=== PATIENT | female | born 1950 | race Caucasian/White ===

== ENCOUNTER 2017-01-14 11:49 | Inpatient (IN) | payer MEDICARE ==
[2017-01-14 11:49] VITALS: BMI 36.7
[2017-01-14] MEDS ORDERED: Sodium Chloride 0.9% 1,000 ML IV STA (12:56)
--- NOTE | 2017-01-14 13:20 | ED PDOC ---
Syncope/Near Syncope/Dizziness Time Seen by Provider: 01/14/17 13:00 Chief Complaint (Nursing): Dizziness/Lightheaded Chief Complaint (Provider): dizzy History Per: Patient (66 y/o female h/o DM/HTN here with complaint of ongoing dizziness/room spinning x months worsening last saturday when she had near fall. Notes additional right side headache. Denies any vomiting Denies any upper or lower extremity weakness.) Past Medical History Reviewed: Historical Data, Nursing Documentation, Vital Signs Vital Signs: Last Vital Signs Temp 98 F 01/14/17 11:53 Pulse 80 01/14/17 11:53 Resp 19 01/14/17 11:53 BP 126/50 L 01/14/17 11:53 Pulse Ox 98 01/14/17 11:53 - Medical History PMH: Anxiety, Arthritis (osteoarthritis), Back Problems, Bronchitis, COPD, Depression, Diabetes (type II), Hypercholesterolemia, Hypothyroidism Denies: HIV, Chronic Kidney Disease - Surgical History Surgical History: Back Surgery - Family History Family History: States: Unknown Family Hx - Home Medications Home Medications: Ambulatory Orders Medication Instructions Recorded DULoxetine [Cymbalta] 60 mg PO DAILY 03/20/16 Insulin Glargine, Recombina 45 unit SC HS 03/20/16 [Lantus] Levothyroxine [Synthroid] 125 mcg PO DAILY 03/20/16 Lisinopril [Zestril] 20 mg PO DAILY 03/20/16 SITagliptin [Januvia] 100 mg PO DAILY 03/20/16 clonazePAM [Klonopin] 0.5 mg PO BID PRN 03/20/16 metFORMIN [glucOPHAGE] 500 mg PO BID 03/20/16 Aspirin [Ecotrin] 81 mg PO DAILY 01/14/17 Atorvastatin [Lipitor] 80 mg PO HS 01/14/17 Budesonide/Formoterol Fumarate 2 puff IH Q12 01/14/17 [Symbicort 80-4.5 Mcg Inhaler] Clopidogrel [Plavix] 75 mg PO DAILY 01/14/17 Doxepin [Sinequan] 10 mg PO HS 01/14/17 GlipiZIDE [Glucotrol] 10 mg PO BID 01/14/17 Meclizine [Meclizine*] 25 mg PO TID PRN 01/14/17 Melatonin [Melatonin] 10 mg PO HS 01/14/17 - Allergies Allergies/Adverse Reactions: Allergies Allergy/AdvReac Type Severity Reaction Status Date / Time shellfish derived Allergy RASH Verified 04/04/16 18:30 Review of Systems ROS Statement: Except As Marked, All Systems Reviewed And Found Negative Physical Exam - Reviewed Nursing Documentation Reviewed: Yes Vital Signs Reviewed: Yes - Physical Exam Appears: Positive for: Well, Non-toxic, No Acute Distress Head Exam: Positive for: ATRAUMATIC, NORMAL INSPECTION, NORMOCEPHALIC Skin: Positive for: Normal Color, Warm, DRY Eye Exam: Positive for: EOMI, Normal appearance, PERRL ENT: Positive for: Normal ENT Inspection Neck: Positive for: Normal, Painless ROM Cardiovascular/Chest: Positive for: Regular Rate, Rhythm Respiratory: Positive for: CNT, Normal Breath Sounds Gastrointestinal/Abdominal: Positive for: Normal Exam, Bowel Sounds, Soft Back: Positive for: Normal Inspection Extremity: Positive for: Normal ROM Neurologic/Psych: Positive for: Alert, Oriented - Laboratory Results Result Diagrams: 01/14/17 13:15 01/14/17 13:15 - ECG O2 Sat by Pulse Oximetry: 98 - Progress ED Course And Treament: GUIAC STOOL SENT TO LAB; STOOL NOTED BROWN EKG NSR 74BPM; NO ECTOPY NO ACUTE CHANGES NS 1 LITER WIDE OPEN REGLAN 10 MG IV; ANTIVERT 25 MG FOR VERTIGO HEAD CT: WNL HGB 5.0 DR[address] FISHER AWARE. [address] FISHER HAS D/W DR. QUINONEZ Disposition - Clinical Impression Clinical Impression: Anemia - Patient ED Disposition Is Patient to be Admitted: Yes - Disposition Disposition Time: 14:12 Condition: FAIR
[2017-01-14 13:40] LABS: BASO # 0.2 K/uL (0.0-0.2); BASO % 1.1 % (0.0-2.0); EOS # 0.3 K/uL (0.0-0.7); EOS % 2.1 % (0.0-4.0); HEMATOCRIT 17.2 % (34.0-47.0); LYMPH # 2.6 K/uL (1.0-4.3); LYMPH % 19.9 % (20.0-40.0); MEAN CELL VOLUME 58.9 fl (81.0-99.0); MEAN CORPUSCULAR HEMOGLOBIN 17.2 pg (27.0-31.0); MEAN CORPUSCULAR HGB CONC 29.3 g/dL (33.0-37.0); MEAN PLATELET VOLUME 8.6 fl (7.2-11.7); MONO # 1.1 K/uL (0.0-0.8); NEUT # 9.1 K/uL (1.8-7.0); NEUT % 68.9 % (50.0-75.0); NRBC % 0.1 % (0.0-0.0); RED CELL DISTRIBUTION WIDTH 20.8 % (11.5-14.5); WHITE BLOOD COUNT 13.1 K/uL (4.8-10.8)
[2017-01-14 13:45] LABS: VENOUS BLOOD GAS BASE EXCESS -0.3 mmol/L (0.0-2.0); VENOUS BLOOD GAS PCO2 38 mmHg (40-60); VENOUS BLOOD PH 7.41 (7.32-7.43)
[2017-01-14 13:45] LABS: RBC URINE 2 /hpf (0-3); URINE BILIRUBIN NEGATIVE (NEGATIVE); URINE BLOOD NEGATIVE (NEGATIVE); URINE COLOR STRAW (YELLOW); URINE GLUCOSE (UA) >=500 mg/dL (Normal); URINE KETONE NEGATIVE (NEGATIVE); URINE LEUKOCYTE ESTERASE NEG Leu/uL (Negative); URINE PROTEIN NEGATIVE (NEGATIVE); URINE UROBILINOGEN 0.2-1.0 mg/dL (0.2-1.0); WBC URINE 1 /hpf (0-5)
[2017-01-14 13:51] LABS: ALB/GLOB RATIO 1.3 (1.0-2.1); ALKALINE PHOSPHATASE 119 U/L (38-126); ALT/SGPT 28 U/L (9-52); AST/SGOT 34 U/L (14-36); BILIRUBIN,TOTAL 0.3 mg/dl (0.2-1.3); BLOOD UREA NITROGEN 13 mg/dl (7-17); CALCIUM 9.1 mg/dL (8.4-10.2); CARBON DIOXIDE 22 mmol/L (22-30); CHLORIDE 94 mmol/L (98-107); GFR AFRICAN-AMERICAN > 60; GLUCOSE,RANDOM 320 mg/dL (65-105); POTASSIUM 4.1 MMOL/L (3.6-5.0); SODIUM 126 mmol/l (132-148); TOTAL PROTEIN 6.7 G/DL (6.3-8.2)
--- NOTE | 2017-01-14 14:35 | CT ---
PROCEDURE: CT HEAD WITHOUT CONTRAST. HISTORY: dizzy COMPARISON: None available. TECHNIQUE: Axial computed tomography images were obtained through the head/brain without intravenous contrast. Radiation dose: Total exam DLP = 880.24 mGy-cm. This CT exam was performed using one or more of the following dose reduction techniques: Automated exposure control, adjustment of the mA and/or kV according to patient size, and/or use of iterative reconstruction technique. FINDINGS: HEMORRHAGE: No acute parenchymal, subarachnoid nor extra-axial spell hemorrhage. BRAIN: Mild chronic periventricular white matter ischemic changes seen extending peripherally into the deep white matter both cerebral hemispheres. Changes are most conspicuous in the perifrontal horn white matter left greater than right. Additionally, there may also be a few scattered deep and subcortical white matter ischemic changes. Mild age-appropriate volume loss. Partially empty sella. Mild vascular calcifications are present. VENTRICLES: No obstructive hydrocephalus. CALVARIUM: . There are no acute calvarial fractures. PARANASAL SINUSES: Mild mucosal thickening seen within the ethmoid air complex MASTOID AIR CELLS: Unremarkable as visualized. No inflammatory changes. OTHER FINDINGS: None. IMPRESSION: No acute intracranial hemorrhage. Mild chronic periventricular white matter ischemic changes seen extending peripherally into the deep white matter both cerebral hemispheres. Changes are most conspicuous in the perifrontal horn white matter left greater than right. Additionally, there may also be a few scattered deep and subcortical white matter ischemic changes. Mild age-appropriate volume loss. Partially empty sella.
[2017-01-14] MEDS ORDERED: Insulin Regular 100 units/ml ONE (15:05)
[2017-01-14 15:11] LABS: PARTIAL THROMBOPLASTIN TIME 25.7 Seconds (25.6-37.1)
[2017-01-14] MEDS ORDERED: Albuterol-Ipratrop 3 mg / 0.5 (3 ml) UD INH PRN (15:54)
[2017-01-14] MEDS ORDERED: Insulin Regular 100 units/ml SC STA (15:56)
[2017-01-14 16:17] LABS: BASO # 0.1 K/uL (0.0-0.2); EOS # 0.3 K/uL (0.0-0.7); EOS % 2.7 % (0.0-4.0); HEMATOCRIT 16.4 % (34.0-47.0); LYMPH # 2.6 K/uL (1.0-4.3); LYMPH % 23.8 % (20.0-40.0); MEAN CELL VOLUME 59.8 fl (81.0-99.0); MEAN CORPUSCULAR HEMOGLOBIN 16.7 pg (27.0-31.0); MEAN CORPUSCULAR HGB CONC 27.9 g/dL (33.0-37.0); MEAN PLATELET VOLUME 8.6 fl (7.2-11.7); MONO % 8.6 % (0.0-10.0); NEUT % 63.9 % (50.0-75.0); NRBC % 0.3 % (0.0-0.0); RED CELL DISTRIBUTION WIDTH 20.5 % (11.5-14.5)
[2017-01-14 16:25] LABS: BLOOD UREA NITROGEN 11 mg/dl (7-17); CALCIUM 8.9 mg/dL (8.4-10.2); CARBON DIOXIDE 22 mmol/L (22-30); CHLORIDE 100 mmol/L (98-107); GFR AFRICAN-AMERICAN > 60; GLUCOSE,RANDOM 254 mg/dL (65-105); POTASSIUM 3.8 MMOL/L (3.6-5.0); SODIUM 131 mmol/l (132-148)
[2017-01-14] MEDS ORDERED: Insulin Lispro (humaLOG) 100 Units/ml Inj SC SCH (16:30)
--- NOTE | 2017-01-14 16:56 | RAD ---
HISTORY: Dizziness. COMPARISON: 04/04/2016 FINDINGS: LUNGS: No active pulmonary disease. PLEURA: No significant pleural effusion identified, no pneumothorax apparent. CARDIOVASCULAR: No radiographic findings to suggest acute or significant cardiovascular disease. OSSEOUS STRUCTURES: No significant abnormalities. VISUALIZED UPPER ABDOMEN: Normal. OTHER FINDINGS: None. IMPRESSION: No active disease. No significant interval change compared to the prior examination(s).
[2017-01-14] MEDS: Insulin Regular 100 units/ml SC SCH ×2 (17:59→23:00)
[2017-01-14] MEDS ORDERED: Dextrose 5%/0.9% NS 1,000 ML IV SCH (19:30)
[2017-01-14] MEDS ORDERED: Influenza Vaccine 18yr & older 0.5 ML/45 MCG SYR IM ONE (21:00)
[2017-01-14 22:06] LABS: FOLATE 19.8 ng/mL
--- NOTE | 2017-01-14 22:20 | CP.PCM.HP ---
History of Present Illness - History of Present Illness History of Present Illness: CC:Weakness and Fall History of Present Illness: A 66yoF with H/o DM II with Complications, Essential HTN, PVD, COPD, Chronic smoker, Dyslpidemia, Anxiety DO and Depression presented with weakness, and Falling with Passing out at least once. Denies Chest Pain, sob, or dizziness. In the ER, she was found to have Hgb 5.0->4.9 mg/dl. Denies Abdominal Pain, change in stool color, Hematemesis or hemachesia. Denies fever or chills. Present on Admission - Present on Admission Any Indicators Present on Admission: Yes History of DVT/PE: No History of Uncontrolled Diabetes: Yes Urinary Catheter: No Decubitus Ulcer Present: No Review of Systems - Review of Systems All systems: reviewed and no additional remarkable complaints except - Constitutional Constitutional: Fatigue, Frequent Falls, Weakness. absent: Fever Past Patient History - Infectious Disease Hx of Infectious Diseases: None - Past Medical History & Family History Past Medical History?: Yes Past Family History: Reviewed and not pertinent - Past Social History Smoking Status: Light Smoker < 10 Cigarettes Daily Alcohol: None Drugs: Denies Home Situation {Lives}: Other - CARDIAC Hx Cardiac Disorders: Yes Hx Circulatory Problems: Yes Hx Hypercholesterolemia: Yes Hx Hypertension: Yes - PULMONARY Hx Respiratory Disorders: Yes Hx Bronchitis: Yes Hx Chronic Obstructive Pulmonary Disease (COPD): Yes - NEUROLOGICAL Hx Neurological Disorder: No - HEENT Hx HEENT Problems: No - RENAL Hx Chronic Kidney Disease: No - ENDOCRINE/METABOLIC Hx Endocrine Disorders: Yes Hx Diabetes Mellitus Type 2: Yes Hx Hypothyroidism: Yes - HEMATOLOGICAL/ONCOLOGICAL Hx Blood Transfusions: No Hx Human Immunodeficiency Virus (HIV): No - INTEGUMENTARY Hx Dermatological Problems: No - MUSCULOSKELETAL/RHEUMATOLOGICAL Hx Musculoskeletal Disorders: Yes Hx Arthritis: Yes (osteoarthritis) Hx Back Pain: Yes Hx Falls: Yes - GASTROINTESTINAL Hx Gastrointestinal Disorders: No Hx Constipation: Yes - GENITOURINARY/GYNECOLOGICAL Hx Genitourinary Disorders: No - PSYCHIATRIC Hx Psychophysiologic Disorder: Yes Hx Anxiety: Yes Hx Depression: Yes - SURGICAL HISTORY Hx Surgeries: Yes Other/Comment: back surgery, as per pt has 2 epidurals in her back. left knee surgery x2 - ANESTHESIA Hx Anesthesia: Yes Hx Anesthesia Reactions: No Hx Malignant Hyperthermia: No Meds Allergies/Adverse Reactions: Allergies Allergy/AdvReac Type Severity Reaction Status Date / Time shellfish derived Allergy RASH Verified 04/04/16 18:30 Physical Exam - Constitutional Appears: Well, No Acute Distress - Head Exam Head Exam: ATRAUMATIC, NORMAL INSPECTION, NORMOCEPHALIC - Eye Exam Eye Exam: EOMI, Normal appearance, PERRL Pupil Exam: NORMAL ACCOMODATION, PERRL - ENT Exam ENT Exam: Mucous Membranes Moist, Normal Exam - Neck Exam Neck exam: Positive for: Normal Inspection - Respiratory Exam Respiratory Exam: Clear to Auscultation Bilateral, NORMAL BREATHING PATTERN - Cardiovascular Exam Cardiovascular Exam: REGULAR RHYTHM, +S1, +S2 - GI/Abdominal Exam GI & Abdominal Exam: Normal Bowel Sounds, Soft. absent: Tenderness - Rectal Exam Rectal Exam: absent: Bloody Stool, Fecal Impaction - Extremities Exam Extremities exam: Positive for: normal inspection - Back Exam Back exam: NORMAL INSPECTION - Neurological Exam Neurological exam: Alert, CN II-XII Intact, Normal Gait, Oriented x3, Reflexes Normal - Psychiatric Exam Psychiatric exam: Normal Affect, Normal Mood - Skin Skin Exam: Dry, Intact, Normal Color, Warm Results - Vital Signs Recent Vital Signs: Last Vital Signs Temp 98.5 F 01/14/17 18:59 Pulse 67 01/14/17 18:59 Resp 20 01/14/17 18:59 BP 98/49 L 01/14/17 18:59 Pulse Ox 95 01/14/17 18:59 - Labs Result Diagrams: 01/16/17 05:40 01/16/17 05:35 Labs: Laboratory Results - last 24 hr 01/14/17 01/14/17 01/14/17 14:15 14:25 16:00 WBC RBC Hgb Hct MCV MCH MCHC RDW Plt Count MPV Neut % (Auto) Lymph % (Auto) [place] % (Auto) Eos % (Auto) Baso % (Auto) Neut # Lymph # [place] # Eos # Baso # Retic Count PT 11.9 INR 1.2 APTT 25.7 Sodium 131 L Potassium 3.8 Chloride 100 Carbon Dioxide 22 Anion Gap 13 BUN 11 Creatinine 0.6 L Est GFR ( Amer) > 60 Est GFR (Non-Af Amer) > 60 POC Glucose (mg/dL) Random Glucose 254 H Serum Osmolality Calcium 8.9 Ferritin 2.8 Vitamin B12 275 Folate 19.8 Urine Osmolality Stool Occult Blood Blood Type O POSITIVE Antibody Screen Negative Crossmatch See Detail BBK History Checked No verified bt 01/14/17 01/14/17 01/14/17 16:00 16:00 16:00 WBC 11.0 H RBC 2.75 L Hgb 4.6 L* Hct 16.4 L MCV 59.8 L MCH 16.7 L MCHC 27.9 L RDW 20.5 H Plt Count 356 MPV 8.6 Neut % (Auto) 63.9 Lymph % (Auto) 23.8 [place] % (Auto) 8.6 Eos % (Auto) 2.7 Baso % (Auto) 1.0 Neut # 7.0 Lymph # 2.6 [place] # 1.0 H Eos # 0.3 Baso # 0.1 Retic Count 3.3 H PT INR APTT Sodium Potassium Chloride Carbon Dioxide Anion Gap BUN Creatinine Est GFR ( Amer) Est GFR (Non-Af Amer) POC Glucose (mg/dL) Random Glucose Serum Osmolality Calcium Ferritin Vitamin B12 Folate Urine Osmolality Stool Occult Blood Negative Blood Type Antibody Screen Crossmatch BBK History Checked 01/14/17 01/14/17 01/14/17 17:33 18:45 19:45 WBC RBC Hgb Hct MCV MCH MCHC RDW Plt Count MPV Neut % (Auto) Lymph % (Auto) [place] % (Auto) Eos % (Auto) Baso % (Auto) Neut # Lymph # [place] # Eos # Baso # Retic Count PT INR APTT Sodium Potassium Chloride Carbon Dioxide Anion Gap BUN Creatinine Est GFR ( Amer) Est GFR (Non-Af Amer) POC Glucose (mg/dL) 150 H Random Glucose Serum Osmolality 281 Calcium Ferritin Vitamin B12 Folate Urine Osmolality 256 L Stool Occult Blood Blood Type Antibody Screen Crossmatch BBK History Checked 01/14/17 21:29 WBC RBC Hgb Hct MCV MCH MCHC RDW Plt Count MPV Neut % (Auto) Lymph % (Auto) [place] % (Auto) Eos % (Auto) Baso % (Auto) Neut # Lymph # [place] # Eos # Baso # Retic Count PT INR APTT Sodium Potassium Chloride Carbon Dioxide Anion Gap BUN Creatinine Est GFR ( Amer) Est GFR (Non-Af Amer) POC Glucose (mg/dL) 68 Random Glucose Serum Osmolality Calcium Ferritin Vitamin B12 Folate Urine Osmolality Stool Occult Blood Blood Type Antibody Screen Crossmatch BBK History Checked - Imaging and Cardiology CT scan - head Status: Report reviewed by me Additional comment: IMPRESSION: No acute intracranial hemorrhage. Mild chronic periventricular white matter ischemic changes seen extending peripherally into the deep white matter both cerebral hemispheres. Changes are most conspicuous in the perifrontal horn white matter left greater than right. Additionally, there may also be a few scattered deep and subcortical white matter ischemic changes. Mild age-appropriate volume loss. Partially empty sella. Chest x-ray Status: Report reviewed by me Additional comment: IMPRESSION: No active disease. No significant interval change compared to the prior examination(s). Assessment & Plan (1) Symptomatic anemia Status: Acute (2) COPD (chronic obstructive pulmonary disease) Status: Acute (3) PVD (peripheral vascular disease) Status: Acute (4) Diabetes mellitus Status: Acute (5) Essential hypertension Status: Acute
[2017-01-14] MEDS: Insulin Detemir 100 Units/ml Inj SC SCH (23:00)
[2017-01-15] MEDS: Insulin Regular 100 units/ml SC SCH ×4 (06:55→22:13)
--- NOTE | 2017-01-15 07:32 | CARD ---
APPROVED REPORT EKG Measurement Heart [id number] <Conclusion> Normal sinus rhythm Nonspecific intraventricular conduction delay Borderline ECG
[2017-01-15] MEDS: Levothyroxine 125 MCG TAB PO SCH (09:22)
[2017-01-15 09:55] LABS: HEMATOCRIT 23.5 % (34.0-47.0); MEAN CELL VOLUME 65.4 fl (81.0-99.0); MEAN CORPUSCULAR HEMOGLOBIN 20.3 pg (27.0-31.0); RED CELL DISTRIBUTION WIDTH 27.3 % (11.5-14.5); WHITE BLOOD COUNT 9.9 K/uL (4.8-10.8)
--- NOTE | 2017-01-15 10:49 | CP.PCM.CON ---
<Vincent Peña - Last Filed: 01/15/17 18:06> History of Present Illness - History of Present Illness History of Present Illness: PGY4 Initial GI Consult Note Dory Beebe is a 66F w/ hx of DM and HTn who presents to the ER with complaints of dizziness and near syncopal episode. Pt was found to have a hgb of 5 in the ER and was given 2 units of PRBCs. She states that she has a hx of anemia and her baseline is 8. Pt states that she has never had a work up for anemia including a colonoscopy or endoscopy. Pt states that she has been progressively weaker for the past 3-4 months. She is limited in mobility due to her COPD and OA, but she has nor been able to do any activities involving exertion. She notes that for the last few days she has been experiencing episodes of dizziness and eventally near syncope. Pt denies any recent weight loss. She denies any melena, hematemesis, BRBPR, or coffee-ground emesis. Pt states that she seldom takes NSAIDS and denies any sig Etoh use. She also denies any nausea, vomiting or diarrhea. She denies any rashes or glutin intolerance. PMHx: DM, HTN , COPD ,DEPRESSION PSHx: Cholecysetomy Social Hx: Occasional Etoh Use, Smokes about 1PPD for 20+ years, denies any illicit drug use Family Hx: Denies any hx of colon Ca ROS: 12-point ROS conducted, neg other than above Past Patient History - Infectious Disease Hx of Infectious Diseases: None - Past Medical History & Family History Past Medical History?: Yes - Past Social History Smoking Status: Light Smoker < 10 Cigarettes Daily - CARDIAC Hx Cardiac Disorders: Yes Hx Circulatory Problems: Yes Hx Hypercholesterolemia: Yes Hx Hypertension: Yes - PULMONARY Hx Respiratory Disorders: Yes Hx Bronchitis: Yes Hx Chronic Obstructive Pulmonary Disease (COPD): Yes - NEUROLOGICAL Hx Neurological Disorder: No - HEENT Hx HEENT Problems: No - RENAL Hx Chronic Kidney Disease: No - ENDOCRINE/METABOLIC Hx Endocrine Disorders: Yes Hx Diabetes Mellitus Type 2: Yes Hx Hypothyroidism: Yes - HEMATOLOGICAL/ONCOLOGICAL Hx Blood Transfusions: No Hx Human Immunodeficiency Virus (HIV): No - INTEGUMENTARY Hx Dermatological Problems: No - MUSCULOSKELETAL/RHEUMATOLOGICAL Hx Musculoskeletal Disorders: Yes Hx Arthritis: Yes (osteoarthritis) Hx Back Pain: Yes Hx Falls: Yes - GASTROINTESTINAL Hx Gastrointestinal Disorders: No Hx Constipation: Yes - GENITOURINARY/GYNECOLOGICAL Hx Genitourinary Disorders: No - PSYCHIATRIC Hx Psychophysiologic Disorder: Yes Hx Anxiety: Yes Hx Depression: Yes - SURGICAL HISTORY Hx Surgeries: Yes Other/Comment: back surgery, as per pt has 2 epidurals in her back. left knee surgery x2 - ANESTHESIA Hx Anesthesia: Yes Hx Anesthesia Reactions: No Hx Malignant Hyperthermia: No Meds Allergies/Adverse Reactions: Allergies Allergy/AdvReac Type Severity Reaction Status Date / Time shellfish derived Allergy RASH Verified 04/04/16 18:30 - Medications Medications: Current Medications Albuterol/Ipratropium (Duoneb 3 Mg/0.5 Mg (3 Ml) Ud) 3 ml INH RQ4 PRN PRN Reason: Shortness of Breath Atorvastatin Calcium (Lipitor) 80 mg PO HS [facility] Last Admin: 01/14/17 23:00 Dose: 80 mg Clonazepam (Klonopin) 0.5 mg PO BID PRN PRN Reason: Anxiety Doxepin HCl (Sinequan) 10 mg PO HS [facility] Last Admin: 01/14/17 23:00 Dose: 10 mg Duloxetine HCl (Cymbalta) 60 mg PO DAILY [facility] Last Admin: 01/15/17 09:21 Dose: 60 mg Dextrose/Sodium Chloride (Dextrose 5%/0.9% Ns 1000 Ml) 1,000 mls @ 40 mls/hr IV .Q24H [facility] Stop: 01/15/17 19:24 Last Admin: 01/15/17 03:58 Dose: 40 mls/hr Insulin Detemir (Levemir) 45 units SC HS [facility] Last Admin: 01/14/17 23:00 Dose: Not Given Insulin Human Regular (Humulin R) 0 units SC [facility] PRN Reason: Protocol Last Admin: 01/15/17 06:55 Dose: Not Given Levothyroxine Sodium (Synthroid) 125 mcg PO ACB [facility] Last Admin: 01/15/17 09:22 Dose: 125 mcg Lisinopril (Zestril) 20 mg PO DAILY [facility] Last Admin: 01/15/17 09:23 Dose: 20 mg Metformin HCl (Glucophage) 500 mg PO BID [facility] Last Admin: 01/15/17 09:33 Dose: Not Given Nicotine (Nicoderm Cq) 1 patch TD DAILY [facility] Last Admin: 01/15/17 09:21 Dose: 1 patch Pantoprazole Sodium (Protonix Inj) 40 mg IVP Q12 [facility] Last Admin: 01/15/17 09:22 Dose: 40 mg Sitagliptin Phosphate (Januvia) 100 mg PO DAILY [facility] Last Admin: 01/15/17 10:36 Dose: 100 mg Physical Exam - Constitutional Appears: Well, Non-toxic, No Acute Distress - Head Exam Head Exam: ATRAUMATIC, NORMOCEPHALIC - Eye Exam Eye Exam: Normal appearance - ENT Exam ENT Exam: Mucous Membranes Moist, Normal Exam - Respiratory Exam Respiratory Exam: Wheezes, NORMAL BREATHING PATTERN. absent: Rales, Rhonchi, Respiratory Distress - Cardiovascular Exam Cardiovascular Exam: REGULAR RHYTHM, RRR, +S1, +S2 - GI/Abdominal Exam GI & Abdominal Exam: Normal Bowel Sounds, Soft. absent: Distended, Firm, Guarding, Organomegaly, Rigid - Extremities Exam Extremities exam: Negative for: joint swelling, pedal edema, tenderness - Neurological Exam Neurological exam: Alert, Oriented x3 - Psychiatric Exam Psychiatric exam: Normal Affect, Normal Mood - Skin Skin Exam: Dry, Intact, Normal Color, Warm Results - Vital Signs Recent Vital Signs: Last Vital Signs Temp 98.4 F 01/15/17 08:29 Pulse 62 01/15/17 09:23 Resp 20 01/15/17 08:29 BP 118/62 01/15/17 09:23 Pulse Ox 94 L 01/15/17 08:29 - Labs Result Diagrams: 01/15/17 09:10 01/14/17 16:00 Labs: Laboratory Results - last 24 hr 01/14/17 01/14/17 01/14/17 12:55 13:15 13:15 WBC 13.1 H RBC 2.92 L Hgb 5.0 L* D Hct 17.2 L MCV 58.9 L D MCH 17.2 L MCHC 29.3 L RDW 20.8 H Plt Count 400 MPV 8.6 Neut % (Auto) 68.9 Lymph % (Auto) 19.9 L Glascock % (Auto) 8.0 Eos % (Auto) 2.1 Baso % (Auto) 1.1 Neut # 9.1 H Lymph # 2.6 Glascock # 1.1 H Eos # 0.3 Baso # 0.2 Retic Count PT INR APTT pO2 VBG pH VBG pCO2 VBG HCO3 VBG O2 Sat (Calc) VBG Base Excess Sodium 126 L Potassium 4.1 Chloride 94 L Carbon Dioxide 22 Anion Gap 14 BUN 13 Creatinine 0.6 L Est GFR ( Amer) > 60 Est GFR (Non-Af Amer) > 60 POC Glucose (mg/dL) 369 H Random Glucose 320 H Serum Osmolality Calcium 9.1 Ferritin Total Bilirubin 0.3 AST 34 ALT 28 Alkaline Phosphatase 119 Troponin I < 0.0120 Total Protein 6.7 Albumin 3.8 Globulin 2.9 Albumin/Globulin Ratio 1.3 Vitamin B12 Folate Urine Color Urine Clarity Urine pH Ur Specific Mathis Urine Protein Urine Glucose (UA) Urine Ketones Urine Blood Urine Nitrate Urine Bilirubin Urine Urobilinogen Ur Leukocyte Esterase Urine RBC (Auto) Urine Microscopic WBC Ur Squamous Epith Cells Urine Osmolality Stool Occult Blood Blood Type Blood Type Confirm Antibody Screen Crossmatch BBK History Checked 01/14/17 01/14/17 01/14/17 13:15 13:40 14:15 WBC RBC Hgb Hct MCV MCH MCHC RDW Plt Count MPV Neut % (Auto) Lymph % (Auto) Glascock % (Auto) Eos % (Auto) Baso % (Auto) Neut # Lymph # Glascock # Eos # Baso # Retic Count PT INR APTT pO2 30 VBG pH 7.41 VBG pCO2 38 L VBG HCO3 23.6 VBG O2 Sat (Calc) 72.5 H VBG Base Excess -0.3 L Sodium Potassium Chloride Carbon Dioxide Anion Gap BUN Creatinine Est GFR ( Amer) Est GFR (Non-Af Amer) POC Glucose (mg/dL) Random Glucose Serum Osmolality Calcium Ferritin Total Bilirubin AST ALT Alkaline Phosphatase Troponin I Total Protein Albumin Globulin Albumin/Globulin Ratio Vitamin B12 Folate Urine Color Straw Urine Clarity Clear Urine pH 6.0 Ur Specific Mathis 1.007 Urine Protein Negative Urine Glucose (UA) >=500 Urine Ketones Negative Urine Blood Negative Urine Nitrate Negative Urine Bilirubin Negative Urine Urobilinogen 0.2-1.0 Ur Leukocyte Esterase Neg Urine RBC (Auto) 2 Urine Microscopic WBC 1 Ur Squamous Epith Cells 2 Urine Osmolality Stool Occult Blood Blood Type O POSITIVE Blood Type Confirm Antibody Screen Negative Crossmatch See Detail BBK History Checked No verified bt 01/14/17 01/14/17 01/14/17 14:25 16:00 16:00 WBC 11.0 H RBC 2.75 L Hgb 4.6 L* Hct 16.4 L MCV 59.8 L MCH 16.7 L MCHC 27.9 L RDW 20.5 H Plt Count 356 MPV 8.6 Neut % (Auto) 63.9 Lymph % (Auto) 23.8 Glascock % (Auto) 8.6 Eos % (Auto) 2.7 Baso % (Auto) 1.0 Neut # 7.0 Lymph # 2.6 Glascock # 1.0 H Eos # 0.3 Baso # 0.1 Retic Count PT 11.9 INR 1.2 APTT 25.7 pO2 VBG pH VBG pCO2 VBG HCO3 VBG O2 Sat (Calc) VBG Base Excess Sodium 131 L Potassium 3.8 Chloride 100 Carbon Dioxide 22 Anion Gap 13 BUN 11 Creatinine 0.6 L Est GFR ( Amer) > 60 Est GFR (Non-Af Amer) > 60 POC Glucose (mg/dL) Random Glucose 254 H Serum Osmolality Calcium 8.9 Ferritin 2.8 Total Bilirubin AST ALT Alkaline Phosphatase Troponin I Total Protein Albumin Globulin Albumin/Globulin Ratio Vitamin B12 275 Folate 19.8 Urine Color Urine Clarity Urine pH Ur Specific Mathis Urine Protein Urine Glucose (UA) Urine Ketones Urine Blood Urine Nitrate Urine Bilirubin Urine Urobilinogen Ur Leukocyte Esterase Urine RBC (Auto) Urine Microscopic WBC Ur Squamous Epith Cells Urine Osmolality Stool Occult Blood Blood Type Blood Type Confirm Antibody Screen Crossmatch BBK History Checked 01/14/17 01/14/17 01/14/17 16:00 16:00 17:23 WBC RBC Hgb Hct MCV MCH MCHC RDW Plt Count MPV Neut % (Auto) Lymph % (Auto) Glascock % (Auto) Eos % (Auto) Baso % (Auto) Neut # Lymph # Glascock # Eos # Baso # Retic Count 3.3 H PT INR APTT pO2 VBG pH VBG pCO2 VBG HCO3 VBG O2 Sat (Calc) VBG Base Excess Sodium Potassium Chloride Carbon Dioxide Anion Gap BUN Creatinine Est GFR ( Amer) Est GFR (Non-Af Amer) POC Glucose (mg/dL) Random Glucose Serum Osmolality Calcium Ferritin Total Bilirubin AST ALT Alkaline Phosphatase Troponin I Total Protein Albumin Globulin Albumin/Globulin Ratio Vitamin B12 Folate Urine Color Urine Clarity Urine pH Ur Specific Mathis Urine Protein Urine Glucose (UA) Urine Ketones Urine Blood Urine Nitrate Urine Bilirubin Urine Urobilinogen Ur Leukocyte Esterase Urine RBC (Auto) Urine Microscopic WBC Ur Squamous Epith Cells Urine Osmolality Stool Occult Blood Negative Blood Type Blood Type Confirm O POSITIVE Antibody Screen Crossmatch BBK History Checked 01/14/17 01/14/17 01/14/17 17:33 18:45 19:45 WBC RBC Hgb Hct MCV MCH MCHC RDW Plt Count MPV Neut % (Auto) Lymph % (Auto) Glascock % (Auto) Eos % (Auto) Baso % (Auto) Neut # Lymph # Glascock # Eos # Baso # Retic Count PT INR APTT pO2 VBG pH VBG pCO2 VBG HCO3 VBG O2 Sat (Calc) VBG Base Excess Sodium Potassium Chloride Carbon Dioxide Anion Gap BUN Creatinine Est GFR ( Amer) Est GFR (Non-Af Amer) POC Glucose (mg/dL) 150 H Random Glucose Serum Osmolality 281 Calcium Ferritin Total Bilirubin AST ALT Alkaline Phosphatase Troponin I Total Protein Albumin Globulin Albumin/Globulin Ratio Vitamin B12 Folate Urine Color Urine Clarity Urine pH Ur Specific Mathis Urine Protein Urine Glucose (UA) Urine Ketones Urine Blood Urine Nitrate Urine Bilirubin Urine Urobilinogen Ur Leukocyte Esterase Urine RBC (Auto) Urine Microscopic WBC Ur Squamous Epith Cells Urine Osmolality 256 L Stool Occult Blood Blood Type Blood Type Confirm Antibody Screen Crossmatch BBK History Checked 01/14/17 01/14/17 01/15/17 21:29 22:24 01:11 WBC RBC Hgb Hct MCV MCH MCHC RDW Plt Count MPV Neut % (Auto) Lymph % (Auto) Glascock % (Auto) Eos % (Auto) Baso % (Auto) Neut # Lymph # Glascock # Eos # Baso # Retic Count PT INR APTT pO2 VBG pH VBG pCO2 VBG HCO3 VBG O2 Sat (Calc) VBG Base Excess Sodium Potassium Chloride Carbon Dioxide Anion Gap BUN Creatinine Est GFR ( Amer) Est GFR (Non-Af Amer) POC Glucose (mg/dL) 68 169 H 97 Random Glucose Serum Osmolality Calcium Ferritin Total Bilirubin AST ALT Alkaline Phosphatase Troponin I Total Protein Albumin Globulin Albumin/Globulin Ratio Vitamin B12 Folate Urine Color Urine Clarity Urine pH Ur Specific Mathis Urine Protein Urine Glucose (UA) Urine Ketones Urine Blood Urine Nitrate Urine Bilirubin Urine Urobilinogen Ur Leukocyte Esterase Urine RBC (Auto) Urine Microscopic WBC Ur Squamous Epith Cells Urine Osmolality Stool Occult Blood Blood Type Blood Type Confirm Antibody Screen Crossmatch BBK History Checked 01/15/17 01/15/17 05:12 09:10 WBC 9.9 RBC 3.60 L Hgb 7.3 L D Hct 23.5 L MCV 65.4 L D MCH 20.3 L MCHC 31.0 L RDW 27.3 H Plt Count 367 MPV Neut % (Auto) Lymph % (Auto) Glascock % (Auto) Eos % (Auto) Baso % (Auto) Neut # Lymph # Glascock # Eos # Baso # Retic Count PT INR APTT pO2 VBG pH VBG pCO2 VBG HCO3 VBG O2 Sat (Calc) VBG Base Excess Sodium Potassium Chloride Carbon Dioxide Anion Gap BUN Creatinine Est GFR ( Amer) Est GFR (Non-Af Amer) POC Glucose (mg/dL) 66 Random Glucose Serum Osmolality Calcium Ferritin Total Bilirubin AST ALT Alkaline Phosphatase Troponin I Total Protein Albumin Globulin Albumin/Globulin Ratio Vitamin B12 Folate Urine Color Urine Clarity Urine pH Ur Specific Mathis Urine Protein Urine Glucose (UA) Urine Ketones Urine Blood Urine Nitrate Urine Bilirubin Urine Urobilinogen Ur Leukocyte Esterase Urine RBC (Auto) Urine Microscopic WBC Ur Squamous Epith Cells Urine Osmolality Stool Occult Blood Blood Type Blood Type Confirm Antibody Screen Crossmatch BBK History Checked Assessment & Plan - Assessment and Plan (Free Text) Assessment: Dory Beebe is a 66F w/ hx of DM, HTN. COPD who presents with symptomatic microcytic hypochromic anemia. She denies any overt blood loss from the GI tract or any other alarm symptoms. Will recommend a screening colonscopy and EGD at this time to r/o malignancy, AVM, ulver, or other course of bleeding. Other etiology: iron def vs hematological -Symptomatic microcytic anemia -hx of anemia -No hx of colon Ca screening -HTN -DM Plan: -will proceed with EGD and colonscopy on -Start on CLD for today -Start Golytly tomorrow and 10mg dulcolox Po x 1 -Recommend complete iron panel and ferritin level, b12, folate -transfuse to keep hgb > 7 -Type and screen -Maintain two lrg bore peripheral IVs -Rectal in the ER revealed only brown stool -since the pt's MCV is sig low ~59, would also consider other causes of anemia including beta or alpha thalasemia; would benefit from hematology consult Will D/[facility] Conrad [facility] - Last Filed: 01/15/17 21:19> Meds - Medications Medications: Current Medications Albuterol/Ipratropium (Duoneb 3 Mg/0.5 Mg (3 Ml) Ud) 3 ml INH RQ4 PRN PRN Reason: Shortness of Breath Atorvastatin Calcium (Lipitor) 80 mg PO HS [facility] Last Admin: 01/14/17 23:00 Dose: 80 mg Bisacodyl (Dulcolax) 10 mg PO ONCE ONE Stop: 01/16/17 12:01 Clonazepam (Klonopin) 0.5 mg PO BID PRN PRN Reason: Anxiety Cyanocobalamin (Vitamin B12 1000 Mcg/Ml Inj) 1,000 mcg IM DAILY [facility] Last Admin: 01/15/17 18:08 Dose: 1,000 mcg Doxepin HCl (Sinequan) 10 mg PO HS [facility] Last Admin: 01/14/17 23:00 Dose: 10 mg Duloxetine HCl (Cymbalta) 60 mg PO DAILY [facility] Last Admin: 01/15/17 09:21 Dose: 60 mg Insulin Detemir (Levemir) 45 units SC [facility] Last Admin: 01/14/17 23:00 Dose: Not Given Insulin Human Regular (Humulin R) 0 units SC [facility] PRN Reason: Protocol Last Admin: 01/15/17 18:12 Dose: 1 unit Levothyroxine Sodium (Synthroid) 125 mcg PO ACB [facility] Last Admin: 01/15/17 09:22 Dose: 125 mcg Lisinopril (Zestril) 20 mg PO DAILY [facility] Last Admin: 01/15/17 09:23 Dose: 20 mg Metformin HCl (Glucophage) 500 mg PO BID [facility] Last Admin: 01/15/17 09:33 Dose: Not Given Nicotine (Nicoderm Cq) 1 patch TD DAILY [facility] Last Admin: 01/15/17 09:21 Dose: 1 patch Pantoprazole Sodium (Protonix Inj) 40 mg IVP Q12 [facility] Last Admin: 01/15/17 09:22 Dose: 40 mg Polyethylene Glycol/Electrolytes (Golytely) 4,000 ml PO ONCE ONE Stop: 01/16/17 12:01 Sitagliptin Phosphate (Januvia) 100 mg PO DAILY [facility] Last Admin: 01/15/17 10:36 Dose: 100 mg Results - Vital Signs Recent Vital Signs: Last Vital Signs Temp 98.7 F 01/15/17 19:06 Pulse 61 01/15/17 19:06 Resp 20 01/15/17 19:06 BP 131/64 01/15/17 19:06 Pulse Ox 97 01/15/17 19:06 - Labs Result Diagrams: 01/15/17 09:10 01/15/17 01:00 Labs: Laboratory Results - last 24 hr 01/14/17 01/14/17 01/14/17 12:55 14:15 14:57 WBC RBC Hgb Hct MCV MCH MCHC RDW Plt Count Sodium Potassium Chloride Carbon Dioxide Anion Gap BUN Creatinine Est GFR ( Amer) Est GFR (Non-Af Amer) POC Glucose (mg/dL) 369 H 340 H Random Glucose Calcium Iron TIBC % Saturation Ferritin Vitamin B12 Folate Urine Osmolality Blood Type O POSITIVE Blood Type Confirm Antibody Screen Negative Crossmatch See Detail BBK History Checked No verified bt 01/14/17 01/14/17 01/14/17 16:00 17:23 17:33 WBC RBC Hgb Hct MCV MCH MCHC RDW Plt Count Sodium Potassium Chloride Carbon Dioxide Anion Gap BUN Creatinine Est GFR ( Amer) Est GFR (Non-Af Amer) POC Glucose (mg/dL) 150 H Random Glucose Calcium Iron TIBC % Saturation Ferritin Vitamin B12 Folate 19.8 Urine Osmolality Blood Type Blood Type Confirm O POSITIVE Antibody Screen Crossmatch BBK History Checked 01/14/17 01/14/17 01/15/17 21:29 22:24 01:00 WBC RBC Hgb Hct MCV MCH MCHC RDW Plt Count Sodium 136 Potassium 4.3 Chloride 103 Carbon Dioxide 26 Anion Gap 11 BUN 8 Creatinine 0.5 L Est GFR ( Amer) > 60 Est GFR (Non-Af Amer) > 60 POC Glucose (mg/dL) 68 169 H Random Glucose 89 Calcium 8.9 Iron TIBC % Saturation Ferritin Vitamin B12 Folate Urine Osmolality Blood Type Blood Type Confirm Antibody Screen Crossmatch BBK History Checked 01/15/17 01/15/17 01/15/17 01:11 05:12 06:47 WBC RBC Hgb Hct MCV MCH MCHC RDW Plt Count Sodium Potassium Chloride Carbon Dioxide Anion Gap BUN Creatinine Est GFR ( Amer) Est GFR (Non-Af Amer) POC Glucose (mg/dL) 97 66 102 Random Glucose Calcium Iron TIBC % Saturation Ferritin Vitamin B12 Folate Urine Osmolality Blood Type Blood Type Confirm Antibody Screen Crossmatch BBK History Checked 01/15/17 01/15/17 01/15/17 09:10 09:10 09:10 WBC 9.9 RBC 3.60 L Hgb 7.3 L D Hct 23.5 L MCV 65.4 L D MCH 20.3 L MCHC 31.0 L RDW 27.3 H Plt Count 367 Sodium Potassium Chloride Carbon Dioxide Anion Gap BUN Creatinine Est GFR ( Amer) Est GFR (Non-Af Amer) POC Glucose (mg/dL) Random Glucose Calcium Iron 13 L TIBC 427 % Saturation 3 L Ferritin 3.3 Vitamin B12 274 Folate > 20.0 Urine Osmolality Blood Type Blood Type Confirm Antibody Screen Crossmatch BBK History Checked 01/15/17 01/15/17 01/15/17 10:56 15:41 16:20 WBC RBC Hgb Hct MCV MCH MCHC RDW Plt Count Sodium Potassium Chloride Carbon Dioxide Anion Gap BUN Creatinine Est GFR ( Amer) Est GFR (Non-Af Amer) POC Glucose (mg/dL) 128 H 159 H Random Glucose Calcium Iron TIBC % Saturation Ferritin Vitamin B12 Folate Urine Osmolality 396 Blood Type Blood Type Confirm Antibody Screen Crossmatch BBK History Checked Attending/Attestation - Attestation I have personally seen and examined this patient.: Yes I have fully participated in the care of the patient.: Yes I have reviewed all pertinent clinical information: Yes Notes (Text): 01/15/17 21:14 Patient seen with GI fellow in am. This is a 66 yr old F w/ hx of DM, HTN. COPD who presents with symptomatic microcytic hypochromic anemia. She denies any overt blood loss from the GI tract or any other alarm symptoms. CT non contrast without any mass lesions. Will schedule for elective EGD/ colonoscopy on . Clear liquid diet. -Start Golytly tomorrow and 10mg dulcolox Po x 1 -Recommend complete iron panel and ferritin level, b12, folate -transfuse to keep hgb > 7 -Type and screen -Maintain two large bore peripheral IVs -Rectal in the ER revealed only brown stool -since the pt's MCV is sig low ~59, would also consider other causes of anemia including beta or alpha thalasemia; would benefit from hematology consult
[2017-01-15 10:59] LABS: IRON 13 ug/dL (37-170)
[2017-01-15 11:00] LABS: BLOOD UREA NITROGEN 8 mg/dl (7-17); CALCIUM 8.9 mg/dL (8.4-10.2); CARBON DIOXIDE 26 mmol/L (22-30); CHLORIDE 103 mmol/L (98-107); GFR AFRICAN-AMERICAN > 60; GLUCOSE,RANDOM 89 mg/dL (65-105); POTASSIUM 4.3 MMOL/L (3.6-5.0); SODIUM 136 mmol/l (132-148)
[2017-01-15] MEDS ORDERED: Iohexol 240 (50 ml) PO ONE (14:14)
--- NOTE | 2017-01-15 16:25 | CT ---
PROCEDURE: CT Abdomen and Pelvis without intravenous contrast HISTORY: r/o malignancy COMPARISON: Abdomen and pelvis CT without contrast 08/22/2015. TECHNIQUE: Helical CT of the abdomen was performed without oral or intravenous contrast administered as requested.. Contrast Dose: None Radiation dose: Total exam DLP = 1047 mGy-cm. This CT exam was performed using one or more of the following dose reduction techniques: Automated exposure control, adjustment of the mA and/or kV according to patient size, and/or use of iterative reconstruction technique. FINDINGS: The indication for this examination is rule out malignancy. Note, no oral or intravenous contrast is administered reducing the diagnostic power this examination significantly, potentially in evaluation of solid organs. LOWER THORAX: Added linear atelectasis or fibrosis seen at the left base and right hemidiaphragm elevation is again appreciated. Small hiatal hernia is again encountered. LIVER: Unremarkable. No gross lesion or ductal dilatation. GALLBLADDER AND BILE DUCTS: Unremarkable. PANCREAS: Unremarkable. No gross lesion or ductal dilatation. SPLEEN: Unremarkable. ADRENALS: Unremarkable. No mass. KIDNEYS AND URETERS: Unremarkable. No hydronephrosis. No solid mass. VASCULATURE: Unremarkable. No aortic aneurysm. BOWEL: A [id number] amount of retained fecal material scattered throughout the large bowel. No bowel obstruction measure edema or ascites grossly evident. No significant small bowel distention appreciated throughout. APPENDIX: The appendix not identified. No CT pattern appendicitis is demonstrated at this time. PERITONEUM: Unremarkable. No free fluid. No free air. LYMPH NODES: Unremarkable. No enlarged lymph nodes. BLADDER: Unremarkable. REPRODUCTIVE: Unremarkable. 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 OTHER FINDINGS: None. IMPRESSION: The lack of intravenous and oral contrast agents limits the interpret the evaluation of the hollow as well as solid viscera in the abdomen and pelvis. No definitive pattern is identified the would indicate a specific malignancy however. There is no suspicious lytic or blastic bony change identified throughout the exam. No definite acute abdominal findings. Incidental pulmonary basilar findings are as discussed above.
[2017-01-15 18:17] LABS: FOLATE > 20.0 ng/mL
[2017-01-15] MEDS: Insulin Detemir 100 Units/ml Inj SC SCH (22:18)
--- NOTE | 2017-01-15 22:18 | CP.PCM.CON ---
History of Present Illness - History of Present Illness History of Present Illness: 66 year old female with a history of COPD, DM, HTN, admitted with fatigue and near syncope, found to be severely anemic with a hgb of 5. The patient reports to progressive fatigue and weakness. Over the weekend she notes to falling to the floor due to severe weakness and light headedness. She denies passing out. She denies abnormal bleeding and bruising. Past medical history: COPD, DM, HTN Past surgical history: Hernia repair Family history: Denies hematologic and oncologic problems Social history: Denies tobacco, alcohol, and illicit drug use. Allergies: NKA Review of systems: All remaining review of systems including HEENT, cardiovascular, respiratory, gastrointestinal, genitourinary, musculoskeletal, dermatologic, neurologic, and psychiatric are negative unless mentioned in the HPI. Past Patient History - Infectious Disease Hx of Infectious Diseases: None - Past Medical History & Family History Past Medical History?: Yes - Past Social History Smoking Status: Light Smoker < 10 Cigarettes Daily - CARDIAC Hx Cardiac Disorders: Yes Hx Circulatory Problems: Yes Hx Hypercholesterolemia: Yes Hx Hypertension: Yes - PULMONARY Hx Respiratory Disorders: Yes Hx Bronchitis: Yes Hx Chronic Obstructive Pulmonary Disease (COPD): Yes - NEUROLOGICAL Hx Neurological Disorder: No - HEENT Hx HEENT Problems: No - RENAL Hx Chronic Kidney Disease: No - ENDOCRINE/METABOLIC Hx Endocrine Disorders: Yes Hx Diabetes Mellitus Type 2: Yes Hx Hypothyroidism: Yes - HEMATOLOGICAL/ONCOLOGICAL Hx Blood Transfusions: No Hx Human Immunodeficiency Virus (HIV): No - INTEGUMENTARY Hx Dermatological Problems: No - MUSCULOSKELETAL/RHEUMATOLOGICAL Hx Musculoskeletal Disorders: Yes Hx Arthritis: Yes (osteoarthritis) Hx Back Pain: Yes Hx Falls: Yes - GASTROINTESTINAL Hx Gastrointestinal Disorders: No Hx Constipation: Yes - GENITOURINARY/GYNECOLOGICAL Hx Genitourinary Disorders: No - PSYCHIATRIC Hx Psychophysiologic Disorder: Yes Hx Anxiety: Yes Hx Depression: Yes - SURGICAL HISTORY Hx Surgeries: Yes Other/Comment: back surgery, as per pt has 2 epidurals in her back. left knee surgery x2 - ANESTHESIA Hx Anesthesia: Yes Hx Anesthesia Reactions: No Hx Malignant Hyperthermia: No Meds Allergies/Adverse Reactions: Allergies Allergy/AdvReac Type Severity Reaction Status Date / Time shellfish derived Allergy RASH Verified 04/04/16 18:30 - Medications Medications: Current Medications Albuterol/Ipratropium (Duoneb 3 Mg/0.5 Mg (3 Ml) Ud) 3 ml INH RQ4 PRN PRN Reason: Shortness of Breath Atorvastatin Calcium (Lipitor) 80 mg PO HS [facility] Last Admin: 01/14/17 23:00 Dose: 80 mg Bisacodyl (Dulcolax) 10 mg PO ONCE ONE Stop: 01/16/17 12:01 Clonazepam (Klonopin) 0.5 mg PO BID PRN PRN Reason: Anxiety Cyanocobalamin (Vitamin B12 1000 Mcg/Ml Inj) 1,000 mcg IM DAILY [facility] Last Admin: 01/15/17 18:08 Dose: 1,000 mcg Doxepin HCl (Sinequan) 10 mg PO HS [facility] Last Admin: 01/14/17 23:00 Dose: 10 mg Duloxetine HCl (Cymbalta) 60 mg PO DAILY [facility] Last Admin: 01/15/17 09:21 Dose: 60 mg Insulin Detemir (Levemir) 45 units SC [facility] Last Admin: 01/14/17 23:00 Dose: Not Given Insulin Human Regular (Humulin R) 0 units SC [facility] PRN Reason: Protocol Last Admin: 01/15/17 22:13 Dose: 1 unit Levothyroxine Sodium (Synthroid) 125 mcg PO ACB [facility] Last Admin: 01/15/17 09:22 Dose: 125 mcg Lisinopril (Zestril) 20 mg PO DAILY [facility] Last Admin: 01/15/17 09:23 Dose: 20 mg Metformin HCl (Glucophage) 500 mg PO BID [facility] Last Admin: 01/15/17 09:33 Dose: Not Given Nicotine (Nicoderm Cq) 1 patch TD DAILY [facility] Last Admin: 01/15/17 09:21 Dose: 1 patch Pantoprazole Sodium (Protonix Inj) 40 mg IVP Q12 [facility] Last Admin: 01/15/17 09:22 Dose: 40 mg Polyethylene Glycol/Electrolytes (Golytely) 4,000 ml PO ONCE ONE Stop: 01/16/17 12:01 Sitagliptin Phosphate (Januvia) 100 mg PO DAILY [facility] Last Admin: 01/15/17 10:36 Dose: 100 mg Physical Exam - Eye Exam Eye Exam: Normal appearance - ENT Exam ENT Exam: Mucous Membranes Dry - Respiratory Exam Respiratory Exam: NORMAL BREATHING PATTERN - Cardiovascular Exam Cardiovascular Exam: +S1, +S2 - GI/Abdominal Exam GI & Abdominal Exam: Normal Bowel Sounds - Extremities Exam Extremities exam: Positive for: normal inspection - Neurological Exam Neurological exam: Oriented x3 - Psychiatric Exam Psychiatric exam: Normal Affect, Normal Mood - Skin Skin Exam: Warm Results - Vital Signs Recent Vital Signs: Last Vital Signs Temp 98.7 F 01/15/17 19:06 Pulse 61 01/15/17 19:06 Resp 20 01/15/17 19:06 BP 131/64 01/15/17 19:06 Pulse Ox 97 01/15/17 19:06 - Labs Result Diagrams: 01/15/17 09:10 01/15/17 01:00 Labs: Laboratory Results - last 24 hr 01/14/17 01/14/17 01/14/17 12:55 14:15 14:57 WBC RBC Hgb Hct MCV MCH MCHC RDW Plt Count Sodium Potassium Chloride Carbon Dioxide Anion Gap BUN Creatinine Est GFR ( Amer) Est GFR (Non-Af Amer) POC Glucose (mg/dL) 369 H 340 H Random Glucose Calcium Iron TIBC % Saturation Ferritin Vitamin B12 Folate Urine Osmolality Stool Occult Blood Blood Type O POSITIVE Blood Type Confirm Antibody Screen Negative Crossmatch See Detail BBK History Checked No verified bt 01/14/17 01/14/17 01/15/17 17:23 22:24 01:00 WBC RBC Hgb Hct MCV MCH MCHC RDW Plt Count Sodium 136 Potassium 4.3 Chloride 103 Carbon Dioxide 26 Anion Gap 11 BUN 8 Creatinine 0.5 L Est GFR ( Amer) > 60 Est GFR (Non-Af Amer) > 60 POC Glucose (mg/dL) 169 H Random Glucose 89 Calcium 8.9 Iron TIBC % Saturation Ferritin Vitamin B12 Folate Urine Osmolality Stool Occult Blood Blood Type Blood Type Confirm O POSITIVE Antibody Screen Crossmatch BBK History Checked 01/15/17 01/15/17 01/15/17 01:11 05:12 06:47 WBC RBC Hgb Hct MCV MCH MCHC RDW Plt Count Sodium Potassium Chloride Carbon Dioxide Anion Gap BUN Creatinine Est GFR ( Amer) Est GFR (Non-Af Amer) POC Glucose (mg/dL) 97 66 102 Random Glucose Calcium Iron TIBC % Saturation Ferritin Vitamin B12 Folate Urine Osmolality Stool Occult Blood Blood Type Blood Type Confirm Antibody Screen Crossmatch BBK History Checked 01/15/17 01/15/17 01/15/17 09:10 09:10 09:10 WBC 9.9 RBC 3.60 L Hgb 7.3 L D Hct 23.5 L MCV 65.4 L D MCH 20.3 L MCHC 31.0 L RDW 27.3 H Plt Count 367 Sodium Potassium Chloride Carbon Dioxide Anion Gap BUN Creatinine Est GFR ( Amer) Est GFR (Non-Af Amer) POC Glucose (mg/dL) Random Glucose Calcium Iron 13 L TIBC 427 % Saturation 3 L Ferritin 3.3 Vitamin B12 274 Folate > 20.0 Urine Osmolality Stool Occult Blood Blood Type Blood Type Confirm Antibody Screen Crossmatch BBK History Checked 01/15/17 01/15/17 01/15/17 10:56 15:41 16:20 WBC RBC Hgb Hct MCV MCH MCHC RDW Plt Count Sodium Potassium Chloride Carbon Dioxide Anion Gap BUN Creatinine Est GFR ( Amer) Est GFR (Non-Af Amer) POC Glucose (mg/dL) 128 H 159 H Random Glucose Calcium Iron TIBC % Saturation Ferritin Vitamin B12 Folate Urine Osmolality Stool Occult Blood Positive H Blood Type Blood Type Confirm Antibody Screen Crossmatch BBK History Checked 01/15/17 01/15/17 16:20 21:14 WBC RBC Hgb Hct MCV MCH MCHC RDW Plt Count Sodium Potassium Chloride Carbon Dioxide Anion Gap BUN Creatinine Est GFR ( Amer) Est GFR (Non-Af Amer) POC Glucose (mg/dL) 158 H Random Glucose Calcium Iron TIBC % Saturation Ferritin Vitamin B12 Folate Urine Osmolality 396 Stool Occult Blood Blood Type Blood Type Confirm Antibody Screen Crossmatch BBK History Checked Assessment & Plan (1) Anemia Assessment and Plan: iron deficiency; will start IV Venofer w/u in progress borderline b12 stores; agree with supplementation transfusion support PRN Thank you for this interesting consult. Status: Acute
--- NOTE | 2017-01-15 23:04 | CP.PCM.PN ---
Subjective - Date & Time of Evaluation Date of Evaluation: 01/15/17 Time of Evaluation: 18:25 Objective - Vital Signs/Intake and Output Vital Signs (last 24 hours): Temp Pulse Resp BP Pulse Ox 98.7 F 61 20 131/64 97 01/15/17 19:06 01/15/17 19:06 01/15/17 19:06 01/15/17 19:06 01/15/17 19:06 Intake and Output: 01/15/17 01/16/17 18:59 06:59 Intake Total 1370 Balance 1370 - Medications Medications: Current Medications Albuterol/Ipratropium (Duoneb 3 Mg/0.5 Mg (3 Ml) Ud) 3 ml INH RQ4 PRN PRN Reason: Shortness of Breath Atorvastatin Calcium (Lipitor) 80 mg PO HS [facility] Last Admin: 01/14/17 23:00 Dose: 80 mg Bisacodyl (Dulcolax) 10 mg PO ONCE ONE Stop: 01/16/17 12:01 Clonazepam (Klonopin) 0.5 mg PO BID PRN PRN Reason: Anxiety Cyanocobalamin (Vitamin B12 1000 Mcg/Ml Inj) 1,000 mcg IM DAILY [facility] Last Admin: 01/15/17 18:08 Dose: 1,000 mcg Doxepin HCl (Sinequan) 10 mg PO HS [facility] Last Admin: 01/15/17 22:21 Dose: 10 mg Duloxetine HCl (Cymbalta) 60 mg PO DAILY [facility] Last Admin: 01/15/17 09:21 Dose: 60 mg Iron Sucrose 200 mg/ Sodium (Chloride) 110 mls @ 110 mls/hr IVPB DAILY [facility] Stop: 01/21/17 09:01 Insulin Detemir (Levemir) 45 units SC HS [facility] Last Admin: 01/15/17 22:18 Dose: 45 u Insulin Human Regular (Humulin R) 0 units SC [facility] PRN Reason: Protocol Last Admin: 01/15/17 22:13 Dose: 1 unit Levothyroxine Sodium (Synthroid) 125 mcg PO ACB [facility] Last Admin: 01/15/17 09:22 Dose: 125 mcg Lisinopril (Zestril) 20 mg PO DAILY [facility] Last Admin: 01/15/17 09:23 Dose: 20 mg Metformin HCl (Glucophage) 500 mg PO BID [facility] Last Admin: 01/15/17 09:33 Dose: Not Given Nicotine (Nicoderm Cq) 1 patch TD DAILY [facility] Last Admin: 01/15/17 09:21 Dose: 1 patch Pantoprazole Sodium (Protonix Inj) 40 mg IVP Q12 [facility] Last Admin: 01/15/17 22:21 Dose: 40 mg Polyethylene Glycol/Electrolytes (Golytely) 4,000 ml PO ONCE ONE Stop: 01/16/17 12:01 Sitagliptin Phosphate (Januvia) 100 mg PO DAILY [facility] Last Admin: 01/15/17 10:36 Dose: 100 mg - Labs Labs: 01/15/17 09:10 01/15/17 01:00 PT 11.9 Seconds (9.8-13.1) 01/14/17 14:25 INR 1.2 (0.9-1.2) 01/14/17 14:25 APTT 25.7 Seconds (25.6-37.1) 01/14/17 14:25
[2017-01-16 05:54] LABS: BASO # 0.1 K/uL (0.0-0.2); BASO % 1.1 % (0.0-2.0); EOS # 0.2 K/uL (0.0-0.7); EOS % 1.6 % (0.0-4.0); HEMATOCRIT 27.4 % (34.0-47.0); LYMPH # 1.3 K/uL (1.0-4.3); LYMPH % 10.9 % (20.0-40.0); MEAN CELL VOLUME 68.9 fl (81.0-99.0); MEAN CORPUSCULAR HGB CONC 30.4 g/dL (33.0-37.0); MEAN PLATELET VOLUME 8.6 fl (7.2-11.7); MONO # 1.4 K/uL (0.0-0.8); MONO % 12.1 % (0.0-10.0); NEUT # 8.6 K/uL (1.8-7.0); NEUT % 74.3 % (50.0-75.0); NRBC % 0.1 % (0.0-0.0); RED CELL DISTRIBUTION WIDTH 29.4 % (11.5-14.5); WHITE BLOOD COUNT 11.6 K/uL (4.8-10.8)
[2017-01-16 06:11] LABS: ALB/GLOB RATIO 1.2 (1.0-2.1); ALKALINE PHOSPHATASE 88 U/L (38-126); ALT/SGPT 32 U/L (9-52); AST/SGOT 29 U/L (14-36); BILIRUBIN,TOTAL 0.6 mg/dl (0.2-1.3); BLOOD UREA NITROGEN 7 mg/dl (7-17); CALCIUM 9.2 mg/dL (8.4-10.2); CARBON DIOXIDE 26 mmol/L (22-30); CHLORIDE 101 mmol/L (98-107); GFR AFRICAN-AMERICAN > 60; GLUCOSE,RANDOM 128 mg/dL (65-105); POTASSIUM 4.7 MMOL/L (3.6-5.0); SODIUM 135 mmol/l (132-148); TOTAL PROTEIN 6.4 G/DL (6.3-8.2)
[2017-01-16] MEDS: Insulin Regular 100 units/ml SC SCH ×4 (06:38→22:15)
[2017-01-16] MEDS: Levothyroxine 125 MCG TAB PO SCH (10:25)
--- NOTE | 2017-01-16 11:22 | CP.PCM.PN ---
<Vincent Peña - Last Filed: 01/16/17 11:23> Subjective - Date & Time of Evaluation Date of Evaluation: 01/16/17 Time of Evaluation: 09:00 - Subjective Subjective: PGY4 GI Follow-Up Pt seen and examined bedside states that she is fatigued Denies any abd pain Denies any further melena, BRBPR No other complaints ROS: 12-point ROS conducted, neg other than above Objective - Vital Signs/Intake and Output Vital Signs (last 24 hours): Temp Pulse Resp BP Pulse Ox 97.6 F 60 18 145/70 95 01/16/17 08:02 01/16/17 10:27 01/16/17 08:02 01/16/17 10:27 01/16/17 08:02 Intake and Output: 01/16/17 01/16/17 06:59 18:59 Intake Total 1370 Balance 1370 - Medications Medications: Current Medications Albuterol/Ipratropium (Duoneb 3 Mg/0.5 Mg (3 Ml) Ud) 3 ml INH RQ4 PRN PRN Reason: Shortness of Breath Atorvastatin Calcium (Lipitor) 80 mg PO [facility] Last Admin: 01/15/17 23:07 Dose: 80 mg Bisacodyl (Dulcolax) 10 mg PO ONCE ONE Stop: 01/16/17 12:01 Clonazepam (Klonopin) 0.5 mg PO BID PRN PRN Reason: Anxiety Cyanocobalamin (Vitamin B12 1000 Mcg/Ml Inj) 1,000 mcg IM DAILY [facility] Last Admin: 01/16/17 10:26 Dose: 1,000 mcg Doxepin HCl (Sinequan) 10 mg PO HS [facility] Last Admin: 01/15/17 22:21 Dose: 10 mg Duloxetine HCl (Cymbalta) 60 mg PO DAILY [facility] Last Admin: 01/16/17 10:24 Dose: 60 mg Iron Sucrose 200 mg/ Sodium (Chloride) 110 mls @ 110 mls/hr IVPB DAILY [facility] Stop: 01/21/17 09:01 Last Admin: 01/16/17 10:35 Dose: 110 mls/hr Insulin Detemir (Levemir) 45 units SC [facility] Last Admin: 01/15/17 22:18 Dose: 45 u Insulin Human Regular (Humulin R) 0 units SC [facility] PRN Reason: Protocol Last Admin: 01/16/17 06:38 Dose: 1 unit Levothyroxine Sodium (Synthroid) 125 mcg PO ACB [facility] Last Admin: 01/16/17 10:25 Dose: 125 mcg Lisinopril (Zestril) 20 mg PO DAILY [facility] Last Admin: 01/16/17 10:27 Dose: 20 mg Metformin HCl (Glucophage) 500 mg PO BID [facility] Last Admin: 01/15/17 09:33 Dose: Not Given Nicotine (Nicoderm Cq) 1 patch TD DAILY [facility] Last Admin: 01/16/17 10:24 Dose: 1 patch Pantoprazole Sodium (Protonix Inj) 40 mg IVP Q12 [facility] Last Admin: 01/16/17 10:25 Dose: 40 mg Polyethylene Glycol/Electrolytes (Golytely) 4,000 ml PO ONCE ONE Stop: 01/16/17 12:01 Sitagliptin Phosphate (Januvia) 100 mg PO DAILY [facility] Last Admin: 01/16/17 10:24 Dose: 100 mg - Labs Labs: 01/16/17 05:40 01/16/17 05:35 PT 11.9 Seconds (9.8-13.1) 01/14/17 14:25 INR 1.2 (0.9-1.2) 01/14/17 14:25 APTT 25.7 Seconds (25.6-37.1) 01/14/17 14:25 - Constitutional Appears: Well, No Acute Distress - Head Exam Head Exam: ATRAUMATIC, NORMOCEPHALIC - Eye Exam Eye Exam: Normal appearance - ENT Exam ENT Exam: Mucous Membranes Moist - Respiratory Exam Respiratory Exam: Clear to Ausculation Bilateral, NORMAL BREATHING PATTERN. absent: Rales, Rhonchi, Wheezes - Cardiovascular Exam Cardiovascular Exam: REGULAR RHYTHM, +S1, +S2 - GI/Abdominal Exam GI & Abdominal Exam: Soft, Normal Bowel Sounds. absent: Guarding, Tenderness, Organomegaly - Extremities Exam Extremities Exam: absent: Joint Swelling, Pedal Edema - Neurological Exam Neurological Exam: Alert, Awake, Oriented x3 - Psychiatric Exam Psychiatric exam: Normal Affect, Normal Mood - Skin Skin Exam: Dry, Intact, Normal Color, Warm Assessment and Plan - Assessment and Plan (Free Text) Assessment: Dory Beebe is a 66F w/ hx of DM, HTN. COPD who presents with symptomatic microcytic hypochromic anemia. She denies any overt blood loss from the GI tract or any other alarm symptoms. Will recommend a screening colonscopy and EGD at this time to r/o malignancy, AVM, ulver, or other course of bleeding. Other etiology: iron def vs hematological -Symptomatic microcytic anemia, likely iron deficiency -hx of anemia -No hx of colon Ca screening -HTN -DM Plan: -will proceed with EGD and colonscopy -continue CLD -Start Golytly today at noon and 10mg dulcolox Po x 1 -Iron studies reveal severe deficiency, getting venofer as per hematology -transfuse to keep hgb > 7 -Maintain two lrg bore peripheral IVs -NPO after midnight D/W Dr. Conrad <Makayla Conrad MD - Last Filed: 01/16/17 20:48> Objective - Vital Signs/Intake and Output Vital Signs (last 24 hours): Temp Pulse Resp BP Pulse Ox 98.5 F 60 18 133/70 95 01/16/17 19:22 01/16/17 19:22 01/16/17 19:22 01/16/17 19:22 01/16/17 19:22 Intake and Output: 01/16/17 01/17/17 18:59 06:59 Intake Total 4100 Balance 4100 - Medications Medications: Current Medications Albuterol/Ipratropium (Duoneb 3 Mg/0.5 Mg (3 Ml) Ud) 3 ml INH RQ4 PRN PRN Reason: Shortness of Breath Atorvastatin Calcium (Lipitor) 80 mg PO HS [facility] Last Admin: 01/15/17 23:07 Dose: 80 mg Clonazepam (Klonopin) 0.5 mg PO BID PRN PRN Reason: Anxiety Cyanocobalamin (Vitamin B12 1000 Mcg/Ml Inj) 1,000 mcg IM DAILY [facility] Last Admin: 01/16/17 10:26 Dose: 1,000 mcg Doxepin HCl (Sinequan) 10 mg PO HS [facility] Last Admin: 01/15/17 22:21 Dose: 10 mg Duloxetine HCl (Cymbalta) 60 mg PO DAILY [facility] Last Admin: 01/16/17 10:24 Dose: 60 mg Iron Sucrose 200 mg/ Sodium (Chloride) 110 mls @ 110 mls/hr IVPB DAILY [facility] Stop: 01/21/17 09:01 Last Admin: 01/16/17 10:35 Dose: 110 mls/hr Dextrose/Sodium Chloride (Dextrose 5%/0.9% Ns 1000 Ml) 1,000 mls @ 40 mls/hr IV .Q24H [facility] Stop: 01/17/17 19:41 Insulin Detemir (Levemir) 45 units SC HS [facility] Last Admin: 01/15/17 22:18 Dose: 45 u Insulin Human Regular (Humulin R) 0 units SC [facility] PRN Reason: Protocol Last Admin: 01/16/17 17:40 Dose: Not Given Levothyroxine Sodium (Synthroid) 125 mcg PO ACB [facility] Last Admin: 01/16/17 10:25 Dose: 125 mcg Lisinopril (Zestril) 20 mg PO DAILY [facility] Last Admin: 01/16/17 10:27 Dose: 20 mg Metformin HCl (Glucophage) 500 mg PO BID [facility] Last Admin: 01/15/17 09:33 Dose: Not Given Nicotine (Nicoderm Cq) 1 patch TD DAILY [facility] Last Admin: 01/16/17 10:24 Dose: 1 patch Pantoprazole Sodium (Protonix Inj) 40 mg IVP Q12 [facility] Last Admin: 01/16/17 10:25 Dose: 40 mg Sitagliptin Phosphate (Januvia) 100 mg PO DAILY [facility] Last Admin: 01/16/17 10:24 Dose: 100 mg - Labs Labs: 01/16/17 05:40 01/16/17 05:35 PT 11.9 Seconds (9.8-13.1) 01/14/17 14:25 INR 1.2 (0.9-1.2) 01/14/17 14:25 APTT 25.7 Seconds (25.6-37.1) 01/14/17 14:25 Attending/Attestation - Attestation I have personally seen and examined this patient.: Yes I have fully participated in the care of the patient.: Yes I have reviewed all pertinent clinical information, including history, physical exam and plan: Yes Notes (Text): 01/16/17 20:48 Patient seen with GI fellow in am. This is a 66 yr old F w/ hx of DM, HTN. COPD who presents with symptomatic microcytic hypochromic anemia. She denies any overt blood loss from the GI tract or any other alarm symptoms. CT non contrast without any mass lesions. Will schedule for elective EGD/ colonoscopy on . Clear liquid diet. -Start Golytely and 10mg dulcolox Po x 1 -Recommend complete iron panel and ferritin level, b12, folate -transfuse to keep hgb > 7 -Type and screen -Maintain two large bore peripheral IVs -Rectal in the ER revealed only brown stool -since the pt's MCV is sig low ~59, would also consider other causes of anemia including beta or alpha thalasemia; would benefit from hematology consult
[2017-01-16] MEDS ORDERED: Bisacodyl 5mg EC Tab PO ONE (12:00)
[2017-01-16] MEDS ORDERED: Peg-Electrolyte Oral Soln 4L (Golytely) PO ONE (12:00)
--- NOTE | 2017-01-16 13:10 | CP.PCM.PN ---
Subjective - Date & Time of Evaluation Date of Evaluation: 01/16/17 Time of Evaluation: 11:00 - Subjective Subjective: No complaints, feeling better Objective - Vital Signs/Intake and Output Vital Signs (last 24 hours): Temp Pulse Resp BP Pulse Ox 98.2 F 58 L 18 115/61 95 01/16/17 11:53 01/16/17 11:53 01/16/17 11:53 01/16/17 11:53 01/16/17 11:53 Intake and Output: 01/16/17 01/16/17 06:59 18:59 Intake Total 1370 Balance 1370 - Medications Medications: Current Medications Albuterol/Ipratropium (Duoneb 3 Mg/0.5 Mg (3 Ml) Ud) 3 ml INH RQ4 PRN PRN Reason: Shortness of Breath Atorvastatin Calcium (Lipitor) 80 mg PO HS [facility] Last Admin: 01/15/17 23:07 Dose: 80 mg Clonazepam (Klonopin) 0.5 mg PO BID PRN PRN Reason: Anxiety Cyanocobalamin (Vitamin B12 1000 Mcg/Ml Inj) 1,000 mcg IM DAILY [facility] Last Admin: 01/16/17 10:26 Dose: 1,000 mcg Doxepin HCl (Sinequan) 10 mg PO HS [facility] Last Admin: 01/15/17 22:21 Dose: 10 mg Duloxetine HCl (Cymbalta) 60 mg PO DAILY [facility] Last Admin: 01/16/17 10:24 Dose: 60 mg Iron Sucrose 200 mg/ Sodium (Chloride) 110 mls @ 110 mls/hr IVPB DAILY [facility] Stop: 01/21/17 09:01 Last Admin: 01/16/17 10:35 Dose: 110 mls/hr Insulin Detemir (Levemir) 45 units SC [facility] Last Admin: 01/15/17 22:18 Dose: 45 u Insulin Human Regular (Humulin R) 0 units SC [facility] PRN Reason: Protocol Last Admin: 01/16/17 12:57 Dose: 1 unit Levothyroxine Sodium (Synthroid) 125 mcg PO ACB [facility] Last Admin: 01/16/17 10:25 Dose: 125 mcg Lisinopril (Zestril) 20 mg PO DAILY [facility] Last Admin: 01/16/17 10:27 Dose: 20 mg Metformin HCl (Glucophage) 500 mg PO BID [facility] Last Admin: 01/15/17 09:33 Dose: Not Given Nicotine (Nicoderm Cq) 1 patch TD DAILY [facility] Last Admin: 01/16/17 10:24 Dose: 1 patch Pantoprazole Sodium (Protonix Inj) 40 mg IVP Q12 [facility] Last Admin: 01/16/17 10:25 Dose: 40 mg Sitagliptin Phosphate (Januvia) 100 mg PO DAILY [facility] Last Admin: 01/16/17 10:24 Dose: 100 mg - Labs Labs: 01/16/17 05:40 01/16/17 05:35 PT 11.9 Seconds (9.8-13.1) 01/14/17 14:25 INR 1.2 (0.9-1.2) 01/14/17 14:25 APTT 25.7 Seconds (25.6-37.1) 01/14/17 14:25 - Head Exam Head Exam: ATRAUMATIC - Eye Exam Eye Exam: Normal appearance - ENT Exam ENT Exam: Mucous Membranes Dry - Respiratory Exam Respiratory Exam: NORMAL BREATHING PATTERN - Cardiovascular Exam Cardiovascular Exam: +S1, +S2 - GI/Abdominal Exam GI & Abdominal Exam: Normal Bowel Sounds - Extremities Exam Extremities Exam: Normal Inspection Assessment and Plan (1) Anemia Assessment & Plan: iron deficiency on Venofer borderline B12 on supplementation s/p PRBC transfusion GI w/u in progress Status: Acute
[2017-01-16] MEDS: Insulin Detemir 100 Units/ml Inj SC SCH (22:24)
[2017-01-16] MEDS ORDERED: Dextrose 5%/0.9% NS 1,000 ML IV SCH (23:59)
[2017-01-17 06:31] LABS: HEMATOCRIT 28.2 % (34.0-47.0); MEAN CELL VOLUME 67.6 fl (81.0-99.0); MEAN CORPUSCULAR HEMOGLOBIN 21.4 pg (27.0-31.0); MEAN CORPUSCULAR HGB CONC 31.7 g/dL (33.0-37.0); RED CELL DISTRIBUTION WIDTH 30.2 % (11.5-14.5); WHITE BLOOD COUNT 9.1 K/uL (4.8-10.8)
[2017-01-17 06:37] LABS: BLOOD UREA NITROGEN 4 mg/dl (7-17); CARBON DIOXIDE 23 mmol/L (22-30); CHLORIDE 104 mmol/L (98-107); GFR AFRICAN-AMERICAN > 60; GLUCOSE,RANDOM 72 mg/dL (65-105); POTASSIUM 3.6 MMOL/L (3.6-5.0); SODIUM 139 mmol/l (132-148)
[2017-01-17] MEDS: Insulin Regular 100 units/ml SC SCH ×4 (09:08→22:06)
[2017-01-17] MEDS: Levothyroxine 125 MCG TAB PO SCH (09:15)
[2017-01-17] MEDS: Lactated Ringer's 500 ML IV ONE ×2 (10:56→13:36)
[2017-01-17] MEDS ORDERED: Lactated Ringer's 500 ML IV ONE (11:00)
[2017-01-17] MEDS ORDERED: Propofol 10 mg/ml Inj (20 ML) ONE ×3 (11:05→11:29)
[2017-01-17] MEDS ORDERED: Midazolam 2 MG/2 ML VIAL ONE (11:05)
[2017-01-17] MEDS ORDERED: Glucagon Recombinant 1 mg Inj ONE (11:28)
[2017-01-17] MEDS: Pantoprazole 40 mg EC Tab PO SCH (17:56)
[2017-01-17] MEDS ORDERED: Insulin Regular 100 units/ml SC STA (18:05)
[2017-01-17] MEDS: Insulin Detemir 100 Units/ml Inj SC SCH (22:07)
--- NOTE | 2017-01-17 23:41 | CP.PCM.PN ---
Subjective - Date & Time of Evaluation Date of Evaluation: 01/16/17 Time of Evaluation: 15:30 Objective - Vital Signs/Intake and Output Vital Signs (last 24 hours): Temp Pulse Resp BP Pulse Ox 99.5 F 66 20 145/78 94 L 01/17/17 19:51 01/17/17 21:01 01/17/17 19:51 01/17/17 21:01 01/17/17 19:51 Intake and Output: 01/17/17 01/18/17 18:59 06:59 Intake Total 200 980 Output Total 900 Balance 200 80 - Medications Medications: Current Medications Acetaminophen (Tylenol 325mg Tab) 650 mg PO Q4 PRN PRN Reason: Pain, moderate (4-7) Last Admin: 01/17/17 17:56 Dose: 650 mg Albuterol/Ipratropium (Duoneb 3 Mg/0.5 Mg (3 Ml) Ud) 3 ml INH RQ4 PRN PRN Reason: Shortness of Breath Atorvastatin Calcium (Lipitor) 80 mg PO HS [facility] Last Admin: 01/16/17 22:11 Dose: 80 mg Clonazepam (Klonopin) 0.5 mg PO BID PRN PRN Reason: Anxiety Last Admin: 01/17/17 20:48 Dose: 0.5 mg Cyanocobalamin (Vitamin B12 1000 Mcg/Ml Inj) 1,000 mcg IM DAILY [facility] Last Admin: 01/17/17 09:15 Dose: 1,000 mcg Doxepin HCl (Sinequan) 10 mg PO HS [facility] Last Admin: 01/16/17 22:11 Dose: 10 mg Duloxetine HCl (Cymbalta) 60 mg PO DAILY [facility] Last Admin: 01/17/17 09:08 Dose: Not Given Iron Sucrose 200 mg/ Sodium (Chloride) 110 mls @ 110 mls/hr IVPB DAILY [facility] Stop: 01/21/17 09:01 Last Admin: 01/17/17 13:31 Dose: 110 mls/hr Insulin Detemir (Levemir) 45 units SC HS [facility] Last Admin: 01/16/17 22:24 Dose: Not Given Insulin Human Regular (Humulin R) 0 units SC ACHS [facility] PRN Reason: Protocol Last Admin: 01/17/17 16:27 Dose: 6 unit Levothyroxine Sodium (Synthroid) 125 mcg PO ACB [facility] Last Admin: 01/17/17 09:15 Dose: Not Given Lisinopril (Zestril) 20 mg PO DAILY [facility] Last Admin: 01/17/17 09:15 Dose: Not Given Metformin HCl (Glucophage) 500 mg PO BID [facility] Last Admin: 01/15/17 09:33 Dose: Not Given Nicotine (Nicoderm Cq) 1 patch TD DAILY [facility] Last Admin: 01/17/17 09:14 Dose: 1 patch Pantoprazole Sodium (Protonix Ec Tab) 40 mg PO BID [facility] Last Admin: 01/17/17 17:56 Dose: 40 mg Sitagliptin Phosphate (Januvia) 100 mg PO DAILY [facility] Last Admin: 01/17/17 09:08 Dose: Not Given - Labs Labs: 01/17/17 05:00 01/17/17 05:00 PT 11.9 Seconds (9.8-13.1) 01/14/17 14:25 INR 1.2 (0.9-1.2) 01/14/17 14:25 APTT 25.7 Seconds (25.6-37.1) 01/14/17 14:25 Assessment and Plan (1) Symptomatic anemia Status: Acute (2) COPD (chronic obstructive pulmonary disease) Status: Acute (3) PVD (peripheral vascular disease) Status: Acute (4) Diabetes mellitus Status: Acute (5) Essential hypertension Status: Acute
--- NOTE | 2017-01-17 23:42 | CP.PCM.PN ---
Subjective - Date & Time of Evaluation Date of Evaluation: 01/17/17 Time of Evaluation: 22:25 Objective - Vital Signs/Intake and Output Vital Signs (last 24 hours): Temp Pulse Resp BP Pulse Ox 99.5 F 66 20 145/78 94 L 01/17/17 19:51 01/17/17 21:01 01/17/17 19:51 01/17/17 21:01 01/17/17 19:51 Intake and Output: 01/17/17 01/18/17 18:59 06:59 Intake Total 200 980 Output Total 900 Balance 200 80 - Medications Medications: Current Medications Acetaminophen (Tylenol 325mg Tab) 650 mg PO Q4 PRN PRN Reason: Pain, moderate (4-7) Last Admin: 01/17/17 17:56 Dose: 650 mg Albuterol/Ipratropium (Duoneb 3 Mg/0.5 Mg (3 Ml) Ud) 3 ml INH RQ4 PRN PRN Reason: Shortness of Breath Atorvastatin Calcium (Lipitor) 80 mg PO HS [facility] Last Admin: 01/16/17 22:11 Dose: 80 mg Clonazepam (Klonopin) 0.5 mg PO BID PRN PRN Reason: Anxiety Last Admin: 01/17/17 20:48 Dose: 0.5 mg Cyanocobalamin (Vitamin B12 1000 Mcg/Ml Inj) 1,000 mcg IM DAILY [facility] Last Admin: 01/17/17 09:15 Dose: 1,000 mcg Doxepin HCl (Sinequan) 10 mg PO HS [facility] Last Admin: 01/16/17 22:11 Dose: 10 mg Duloxetine HCl (Cymbalta) 60 mg PO DAILY [facility] Last Admin: 01/17/17 09:08 Dose: Not Given Iron Sucrose 200 mg/ Sodium (Chloride) 110 mls @ 110 mls/hr IVPB DAILY [facility] Stop: 01/21/17 09:01 Last Admin: 01/17/17 13:31 Dose: 110 mls/hr Insulin Detemir (Levemir) 45 units SC HS [facility] Last Admin: 01/16/17 22:24 Dose: Not Given Insulin Human Regular (Humulin R) 0 units SC ACHS [facility] PRN Reason: Protocol Last Admin: 01/17/17 16:27 Dose: 6 unit Levothyroxine Sodium (Synthroid) 125 mcg PO ACB [facility] Last Admin: 01/17/17 09:15 Dose: Not Given Lisinopril (Zestril) 20 mg PO DAILY [facility] Last Admin: 01/17/17 09:15 Dose: Not Given Metformin HCl (Glucophage) 500 mg PO BID [facility] Last Admin: 01/15/17 09:33 Dose: Not Given Nicotine (Nicoderm Cq) 1 patch TD DAILY [facility] Last Admin: 01/17/17 09:14 Dose: 1 patch Pantoprazole Sodium (Protonix Ec Tab) 40 mg PO BID [facility] Last Admin: 01/17/17 17:56 Dose: 40 mg Sitagliptin Phosphate (Januvia) 100 mg PO DAILY [facility] Last Admin: 01/17/17 09:08 Dose: Not Given - Labs Labs: 01/17/17 05:00 01/17/17 05:00 PT 11.9 Seconds (9.8-13.1) 01/14/17 14:25 INR 1.2 (0.9-1.2) 01/14/17 14:25 APTT 25.7 Seconds (25.6-37.1) 01/14/17 14:25 Assessment and Plan (1) Symptomatic anemia Status: Acute (2) COPD (chronic obstructive pulmonary disease) Status: Acute (3) PVD (peripheral vascular disease) Status: Acute (4) Diabetes mellitus Status: Acute (5) Essential hypertension Status: Acute
--- NOTE | 2017-01-18 07:37 | PQF GENQUE ---
Dr. Kennedy, Please specify type, status of DM 2: i.e. With hyperglycemia (poorly controlled, out of control, etc.) With hyperosmolarity ([facility]) With hypoglycemia With ketoacidosis Other (please specify) Clinically unable to determine Unknown 01/17:Random glucose@05:00: 72 and POC:94->465->[phone]->[phone] This form is a permanent part of the medical record Clarification of your documentation is requested to better reflect the severity of illness and intensity of treatment of your patient. Indicators present [] Specify: [] [] Specify: [] [] Specify: [] [] Specify: [] Location in the medical record that reflects the above clinical findings: [] Treatment Provided: [] PHYSICIAN'S RESPONSE Based on your medical judgment of the clinical indicators outlined above please clarify the following: [X] Practitioner response DM II with Hyperglycemia, Poorly Controlled [] If unable to determine, please check the box, sign and date. Present On Admission (POA) Indicator: [X] Present at the time of admission [] Not present at the time of admission [] Clinically Undetermined In responding to this query, please exercise your independent professional judgment. The fact that a question is asked does not imply that any particular answer is desired or expected. Thank you for your clarification on this documentation. If you have any questions please call. * Thank you, Elicia Ordonez RN ext. #[phone]:Leah Barnes RN MTDD
--- NOTE | 2017-01-18 09:08 | CP.PCM.PN ---
<Vincent Peña - Last Filed: 01/18/17 09:08> Subjective - Date & Time of Evaluation Date of Evaluation: 01/18/17 Time of Evaluation: 07:00 - Subjective Subjective: PGY 4 GI Follow-up Pt seen and examined bedside Currently has no complaints Denies any abd pain, SOB, or CP Denies any melena, BRBPR, or coffee-ground emesis Tolerating diet ROS: 12-point ROS conducted, neg other than above Objective - Vital Signs/Intake and Output Vital Signs (last 24 hours): Temp Pulse Resp BP Pulse Ox 99.0 F 61 20 112/53 L 94 L 01/18/17 08:18 01/18/17 08:18 01/18/17 08:18 01/18/17 08:18 01/18/17 08:18 Intake and Output: 01/18/17 01/18/17 06:59 18:59 Intake Total 980 Output Total 900 Balance 80 - Medications Medications: Current Medications Acetaminophen (Tylenol 325mg Tab) 650 mg PO Q4 PRN PRN Reason: Pain, moderate (4-7) Last Admin: 01/17/17 17:56 Dose: 650 mg Albuterol/Ipratropium (Duoneb 3 Mg/0.5 Mg (3 Ml) Ud) 3 ml INH RQ4 PRN PRN Reason: Shortness of Breath Aspirin (Ecotrin) 81 mg PO DAILY [facility] Atorvastatin Calcium (Lipitor) 80 mg PO HS [facility] Last Admin: 01/17/17 22:06 Dose: 80 mg Clonazepam (Klonopin) 0.5 mg PO BID PRN PRN Reason: Anxiety Last Admin: 01/17/17 20:48 Dose: 0.5 mg Cyanocobalamin (Vitamin B12 1000 Mcg/Ml Inj) 1,000 mcg IM DAILY [facility] Last Admin: 01/17/17 09:15 Dose: 1,000 mcg Doxepin HCl (Sinequan) 10 mg PO HS [facility] Last Admin: 01/17/17 22:06 Dose: 10 mg Duloxetine HCl (Cymbalta) 60 mg PO DAILY [facility] Last Admin: 01/17/17 09:08 Dose: Not Given Iron Sucrose 200 mg/ Sodium (Chloride) 110 mls @ 110 mls/hr IVPB DAILY [facility] Stop: 01/21/17 09:01 Last Admin: 01/17/17 13:31 Dose: 110 mls/hr Insulin Detemir (Levemir) 45 units SC HS [facility] Last Admin: 01/17/17 22:07 Dose: 45 u Insulin Human Regular (Humulin R) 0 units SC ACHS [facility] PRN Reason: Protocol Last Admin: 01/17/17 22:06 Dose: Not Given Levothyroxine Sodium (Synthroid) 125 mcg PO ACB [facility] Last Admin: 01/17/17 09:15 Dose: Not Given Lisinopril (Zestril) 20 mg PO DAILY [facility] Last Admin: 01/17/17 09:15 Dose: Not Given Metformin HCl (Glucophage) 500 mg PO BID [facility] Last Admin: 01/15/17 09:33 Dose: Not Given Nicotine (Nicoderm Cq) 1 patch TD DAILY [facility] Last Admin: 01/17/17 09:14 Dose: 1 patch Pantoprazole Sodium (Protonix Ec Tab) 40 mg PO BID [facility] Last Admin: 01/17/17 17:56 Dose: 40 mg Sitagliptin Phosphate (Januvia) 100 mg PO DAILY [facility] Last Admin: 01/17/17 09:08 Dose: Not Given - Labs Labs: 01/17/17 05:00 01/17/17 05:00 PT 11.9 Seconds (9.8-13.1) 01/14/17 14:25 INR 1.2 (0.9-1.2) 01/14/17 14:25 APTT 25.7 Seconds (25.6-37.1) 01/14/17 14:25 - Constitutional Appears: Well, No Acute Distress - Head Exam Head Exam: ATRAUMATIC, NORMOCEPHALIC - Eye Exam Eye Exam: Normal appearance - ENT Exam ENT Exam: Mucous Membranes Moist, Normal Exam - Respiratory Exam Respiratory Exam: Clear to Ausculation Bilateral, NORMAL BREATHING PATTERN. absent: Rales, Rhonchi, Wheezes - Cardiovascular Exam Cardiovascular Exam: REGULAR RHYTHM - GI/Abdominal Exam GI & Abdominal Exam: Soft, Normal Bowel Sounds. absent: Tenderness, Hyperactive Bowel Sounds, Organomegaly - Extremities Exam Extremities Exam: absent: Joint Swelling, Pedal Edema - Neurological Exam Neurological Exam: Alert, Awake, Oriented x3 - Psychiatric Exam Psychiatric exam: Normal Affect, Normal Mood - Skin Skin Exam: Dry, Intact, Normal Color, Warm Assessment and Plan - Assessment and Plan (Free Text) Assessment: Dory Beebe is a 66F w/ hx of DM, HTN. COPD who presents with symptomatic microcytic hypochromic anemia. She denies any overt blood loss from the GI tract or any other alarm symptoms. Push endoscopy revealed x3 AVM in the duodenum and jejunum, s/p gold probe with successful hemostatis. -AVM -Microcytic anemia likely 2/2 chronic GI loss from AVM -hx of anemia -No hx of colon Ca screening -HTN -DM Plan: -okay to d/c from GI standpoint -Can restart ASA today and plavix in 2 days -continue PPI BID -Iron suppl and venofer transfusions per Hemotology abd PCP -if hgb continue to drop, may repeat push endoscopy vs capsule study -can follow-up as outpt -Contact info given Will D/W Dr. Conrad <Makayla Conrad MD - Last Filed: 01/18/17 11:36> Objective - Vital Signs/Intake and Output Vital Signs (last 24 hours): Temp Pulse Resp BP Pulse Ox 99.0 F 61 20 112/53 L 94 L 01/18/17 08:18 01/18/17 09:57 01/18/17 08:18 01/18/17 09:57 01/18/17 08:18 Intake and Output: 01/18/17 01/18/17 06:59 18:59 Intake Total 980 Output Total 900 Balance 80 - Medications Medications: Current Medications Acetaminophen (Tylenol 325mg Tab) 650 mg PO Q4 PRN PRN Reason: Pain, moderate (4-7) Last Admin: 01/17/17 17:56 Dose: 650 mg Albuterol/Ipratropium (Duoneb 3 Mg/0.5 Mg (3 Ml) Ud) 3 ml INH RQ4 PRN PRN Reason: Shortness of Breath Aspirin (Ecotrin) 81 mg PO DAILY [facility] Last Admin: 01/18/17 10:27 Dose: 81 mg Atorvastatin Calcium (Lipitor) 80 mg PO HS [facility] Last Admin: 01/17/17 22:06 Dose: 80 mg Clonazepam (Klonopin) 0.5 mg PO BID PRN PRN Reason: Anxiety Last Admin: 01/17/17 20:48 Dose: 0.5 mg Cyanocobalamin (Vitamin B12 1000 Mcg/Ml Inj) 1,000 mcg IM DAILY [facility] Last Admin: 01/18/17 10:01 Dose: 1,000 mcg Doxepin HCl (Sinequan) 10 mg PO HS [facility] Last Admin: 01/17/17 22:06 Dose: 10 mg Duloxetine HCl (Cymbalta) 60 mg PO DAILY [facility] Last Admin: 01/18/17 09:54 Dose: 60 mg Iron Sucrose 200 mg/ Sodium (Chloride) 110 mls @ 110 mls/hr IVPB DAILY [facility] Stop: 01/21/17 09:01 Last Admin: 01/18/17 11:06 Dose: 110 mls/hr Insulin Detemir (Levemir) 45 units SC HS [facility] Last Admin: 01/17/17 22:07 Dose: 45 u Insulin Human Regular (Humulin R) 0 units SC [facility] PRN Reason: Protocol Last Admin: 01/18/17 09:55 Dose: 3 unit Levothyroxine Sodium (Synthroid) 125 mcg PO ACB [facility] Last Admin: 01/18/17 09:58 Dose: 125 mcg Lisinopril (Zestril) 20 mg PO DAILY [facility] Last Admin: 01/18/17 09:57 Dose: 20 mg Metformin HCl (Glucophage) 500 mg PO BID [facility] Last Admin: 01/15/17 09:33 Dose: Not Given Nicotine (Nicoderm Cq) 1 patch TD DAILY [facility] Last Admin: 01/18/17 09:56 Dose: 1 patch Pantoprazole Sodium (Protonix Ec Tab) 40 mg PO BID [facility] Last Admin: 01/18/17 09:57 Dose: 40 mg Sitagliptin Phosphate (Januvia) 100 mg PO DAILY [facility] Last Admin: 01/18/17 09:56 Dose: 100 mg - Labs Labs: 01/17/17 05:00 01/17/17 05:00 PT 11.9 Seconds (9.8-13.1) 01/14/17 14:25 INR 1.2 (0.9-1.2) 01/14/17 14:25 APTT 25.7 Seconds (25.6-37.1) 01/14/17 14:25 Attending/Attestation - Attestation I have personally seen and examined this patient.: Yes I have fully participated in the care of the patient.: Yes I have reviewed all pertinent clinical information, including history, physical exam and plan: Yes Notes (Text): 01/18/17 11:34 patient seen with Gi fellow on rounds. 66 yr old F w/ hx of DM, HTN. COPD who presents with symptomatic microcytic hypochromic anemia. She denies any overt blood loss from the GI tract or any other alarm symptoms. Push endoscopy revealed x3 AVM in the duodenum and jejunum, s/p gold probe with successful hemostatis and esophagitis. Can restart ASA today and plavix in 2 days. Continue PPI BID. If hgb continue to drop, may repeat push endoscopy vs capsule study. Will follow with me as outpatient in 4 weeks
[2017-01-18] MEDS: Insulin Regular 100 units/ml SC SCH ×3 (09:55→16:57)
[2017-01-18] MEDS: Pantoprazole 40 mg EC Tab PO SCH ×2 (09:57→16:58)
[2017-01-18] MEDS: Levothyroxine 125 MCG TAB PO SCH (09:58)
[2017-01-18] MEDS ORDERED: Insulin Regular 100 units/ml SC ONE ×2 (12:00→17:19)
[2017-01-18 15:44] VITALS: RESP 20
[2017-01-18 18:53] VITALS: BP 158/76; PULSE 57; TEMP 98.8; O2SAT 96
== END 2017-01-18 19:15 | disposition home or self-care (01) | DRG 379 ==
LOC: H.ER 11:49 → H.ERHOLD 14:12 → H.TEL 16:29
PROVIDERS: ADMIT Internal Medicine; ATTEND Internal Medicine
PROC: 30233N1 Transfusion of Nonautologous Red Blood Cells into Peripheral Vein, Percutaneous Approach (ICD-10-PCS; 2017-01-14)
PROC: 3E0234Z Introduction of Serum, Toxoid and Vaccine into Muscle, Percutaneous Approach (ICD-10-PCS; 2017-01-15)
PROC: 0DB68ZX Excision of Stomach, Via Natural or Artificial Opening Endoscopic, Diagnostic (ICD-10-PCS; 2017-01-17)
PROC: 0DBL8ZZ Excision of Transverse Colon, Via Natural or Artificial Opening Endoscopic (ICD-10-PCS; 2017-01-17)
PROC: 0W3P8ZZ Control Bleeding in Gastrointestinal Tract, Via Natural or Artificial Opening Endoscopic (ICD-10-PCS; principal; 2017-01-17 13:15)
PROC: 0DB58ZX Excision of Esophagus, Via Natural or Artificial Opening Endoscopic, Diagnostic (ICD-10-PCS; 2017-01-17 13:15)
DX: K31.811 Angiodysplasia of stomach and duodenum with bleeding (principal); K55.21 Angiodysplasia of colon with hemorrhage; E11.51 Type 2 diabetes mellitus with diabetic peripheral angiopathy without gangrene; J44.9 Chronic obstructive pulmonary disease, unspecified; E03.9 Hypothyroidism, unspecified; Z23 Encounter for immunization; K21.0 Gastro-esophageal reflux disease with esophagitis; Z91.013 Allergy to seafood; I10 Essential (primary) hypertension; F41.9 Anxiety disorder, unspecified; F32.9 Major depressive disorder, single episode, unspecified; E78.00 Pure hypercholesterolemia, unspecified; E78.5 Hyperlipidemia, unspecified; K29.70 Gastritis, unspecified, without bleeding; D50.0 Iron deficiency anemia secondary to blood loss (chronic); D12.2 Benign neoplasm of ascending colon; D12.3 Benign neoplasm of transverse colon; E11.65 Type 2 diabetes mellitus with hyperglycemia

== ENCOUNTER 2017-11-29 20:03 | Emergency (ER) | payer MEDICARE, OTHER ==
[2017-11-29 20:04] VITALS: BMI 36.7
[2017-11-29 20:10] VITALS: O2SAT 98
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
[2017-11-29] MEDS ORDERED: Oxycodone/Acetaminophen 5/325 mg Tab PO ONE (22:04)
[2017-11-29] MEDS ORDERED: Oxycodone/Acetaminophen 5/325 mg Tab ONE (22:10)
[2017-11-29 22:14] VITALS: BP 115/72; PULSE 75; RESP 16; TEMP 98.2
--- NOTE | 2017-11-30 07:05 | RAD ---
Date of service: 11/29/2017 HISTORY: joint pain, r/o lateral malleolus fx COMPARISON: No prior FINDINGS: BONES: Nondisplaced fracture of the distal fibula/ lateral malleolus. JOINTS: Normal. No osteoarthritis. SOFT TISSUE: Normal. OTHER FINDINGS: None . IMPRESSION: Nondisplaced fracture of the distal fibula/ lateral malleolus.
--- NOTE | 2017-11-30 07:06 | RAD ---
Date of service: 11/29/2017 PROCEDURE: Left Foot Radiographs. HISTORY: joint pain COMPARISON: None. FINDINGS: BONES: Normal. No fracture. JOINTS: Normal. SOFT TISSUES: Normal. OTHER FINDINGS: None. IMPRESSION: Normal left foot radiographs.
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
== END 2017-11-29 22:37 | disposition home or self-care (01) ==
LOC: H.ER 20:03
DX: S82.62XA Displaced fracture of lateral malleolus of left fibula, initial encounter for closed fracture (principal); X50.9XXA Other and unspecified overexertion or strenuous movements or postures, initial encounter; Y92.512 Supermarket, store or market as the place of occurrence of the external cause; E03.9 Hypothyroidism, unspecified; E11.9 Type 2 diabetes mellitus without complications; E78.00 Pure hypercholesterolemia, unspecified; I25.10 Atherosclerotic heart disease of native coronary artery without angina pectoris; Z79.4 Long term (current) use of insulin